=== PATIENT | female | born 1950 | race Caucasian/White ===

== ENCOUNTER 2019-08-08 10:50 | Inpatient (IN) ==
[2019-08-08] MEDS ORDERED: Isovue-370 500 ML BOTTLE IVP ONE ×2 (11:03→16:04)
--- NOTE | 2019-08-08 11:09 | Emergency Department Note ---
Disposition Clinical Impression: Hip pain, right Cerebrovascular accident Qualifiers: CVA mechanism: unspecified Qualified Code(s): I63.9 - Cerebral infarction, unspecified Fall Qualifiers: Encounter type: initial encounter Qualified Code(s): W19.XXXA - Unspecified fall, initial encounter Disposition: Admitted As Inpatient Condition: Fair Time of Disposition: 15:04 Neuro HPI - General Chief Complaint: ED Neuro Symptoms/Deficit Stated Complaint: stroke symptoms Time Seen by Provider: 08/08/19 11:01 Source: patient, family, EMS Mode of arrival: EMS Limitations: altered mental status, physical limitation, other Nursing Notes Reviewed: Yes Vital Signs Reviewed: Yes - History of Present Illness HPI Narrative: 68F with unknown PMhx that reports for right sided arm and leg weakness and right sided facial droop after reportedly being found on the floor by meals on wheels. Last seen well by family at bedside on or possibly Thursday, timeline is uncertain. No hx of stroke, no hx of intracranial surgery or head bleed. Has a hx of epilepsy for which she has a stimulator that she fires when she feels that she might be having a seizure. Pt is able to state her name and birthday with multiple prompts, but is difficult to understand. - Related Data Home Medications: Home Medications Medication Instructions Recorded Confirmed Atorvastatin Calcium [Lipitor] 20 mg PO DAILY 07/30/16 07/30/16 Cholecalciferol (D-3) [Vitamin D] 1,000 unit PO DAILY 07/30/16 07/30/16 Escitalopram [Lexapro] 20 mg PO DAILY 07/30/16 07/30/16 Ferrous Sulfate 325 mg PO BID 07/30/16 07/30/16 LevETIRAcetam [Keppra] 1,500 mg PO Q12H 07/30/16 07/30/16 Levothyroxine [Synthroid] 88 mcg PO DAILY 07/30/16 07/30/16 Oxybutynin [Ditropan] 2.5 mg PO QAM 07/30/16 07/30/16 Oxybutynin [Ditropan] 5 mg PO QPM 07/30/16 07/30/16 Pantoprazole Sodium [Protonix] 40 mg PO DAILY 07/30/16 07/30/16 diazePAM [Valium] 5 mg PO BID PRN 07/30/16 07/30/16 lamoTRIgine [Lamictal] 100 mg PO BID 07/30/16 07/30/16 metFORMIN [Glucophage] 1,000 mg PO BIDWM 07/30/16 07/30/16 Previous Rx's Medication Instructions Recorded Nitrofurantoin (BID) [Macrobid] 100 mg PO BID #14 capsule 12/09/17 Allergies/Adverse Reactions: Allergies Allergy/AdvReac Type Severity Reaction Status Date / Time aspirin Allergy See Verified 08/08/19 11:06 Comments codeine Allergy See Verified 08/08/19 11:06 Comments indomethacin [From Indocin] Allergy See Verified 08/08/19 11:06 Comments meclizine [From Antivert] Allergy See Verified 08/08/19 11:06 Comments Penicillins [PCN] Allergy See Verified 08/08/19 11:06 Comments phenytoin [From Dilantin] Allergy See Verified 08/08/19 11:06 Comments Sulfa (Sulfonamide Allergy See Verified 08/08/19 11:06 Antibiotics) Comments Limitations: ROS unobtainable due to patients medical condition Past Medical History - Past Medical History Source: unable to obtain Medical history: Reports: other Surgical history: Reports: other Psychiatric history: Reports: no psych history - Social History Smoking Status: Current every day smoker Smokeless Tobacco Status: No Alcohol use: Reports: none Drug use: Reports: none Physical Exam General: Knows name & birthday, place, but not time. Has head turned to the left, but can turn head to right. Requires multiple prompts to answer questions. Pt is disheveled and has soiled herself. Head: atraumatic, normocephalic. ENT: No conjunctival injection, no scleral icterus. PERRLA. EOMI. Oropharynx non- erythematous. mucous membranes tacky. Neuro: Has right sided facial droop, cannot keep right arm lifted, nor can she keep right leg lifted. She does not know what day it is. Can do cerebellar testing with left finger to nose, cannot do lower extremity cerebellar testing. Cannot identify objects from picture or read sentences. States that her sensation feels different when comparing left to right but cannot state how it is different. Speech is slurred and difficult to understand. Can move her eyes in all directions. Pulm: Lungs CTAB A/P. No wheezes, rales, ronchi. Cardio: RRR no m/r/g. Chest not tender to palpation. Abd: Soft, non-distended. Normoactive bowel sounds. Non-tender to palpation. No guarding. Non rigid. Extremities: Radial pulses 2+ stuart, dorsalis pedis/posterior tibialis 2+ stuart. No LE edema. No cyanosis, clubbing. Skin: warm, dry, intact. No rashes. Psych: Appropriate mood and affect. Answers questions appropriately. Cooperative with exam. - General Limitations: other General appearance: alert Course - Consultations Consultation #1: Spoke with Dr. anne from [facility] that states the patient is outside of the window for tPA. They declined to do a stroke evaluation using the robot and recommended admission for further neurologic workup here. Time: 11:20 Consultation #2: Spoke with Dr. Mcclendon from [facility] who states that there is nothing acute on non-con head CT. Time: 11:21 Consultation #3: Spoke with Ja Delong NP for Neurology who states they will see the patient as an inpatient. He had no further recommendations for care at this time. Time: 14:22 Vital Signs Temperature 98.2 F 08/08/19 10:50 Pulse Rate 74 08/08/19 10:50 Respiratory Rate 17 08/08/19 10:50 Blood Pressure 194/110 08/08/19 10:50 O2 Sat by Pulse Oximetry 99 08/08/19 10:50 Temperature 98.2 F 08/08/19 10:50 Pulse Rate 63 08/08/19 13:17 Respiratory Rate 18 08/08/19 13:17 Blood Pressure 194/102 08/08/19 13:17 O2 Sat by Pulse Oximetry 98 08/08/19 13:17 Oxygen Delivery Oxygen Delivery Room Air Neuro Symptoms/Deficit - MDM Narrative Medical decision making narrative: 68-year-old female that was reportedly found down on her floor at home after a fall at some point over the last several days. Patient was last seen by family on . Patient is unable to fully communicate what happened to her. EMS reported that her house was somewhat dirty, patient herself appears disheveled. There is some bruising over the right side of her hip. Patient has a right- sided facial droop, right arm and leg weakness with inability to move the extremities. A stroke alert was called, however when family arrived and reported that she was last known well on , the stroke alert was canceled. CT of her head was obtained which did not show any acute findings on a non-con Thursday, CT angiogram of the head did not reveal any clot that was visualized. X-ray of the hip was inconclusive as to fracture status, I spoke with the orthopedist on-call who recommended a follow-up CT while the patient is here to determine if there is a break in the hip without any dislocation or displacement. Patient was not complaining of any right hip pain while in the department. Patient was admitted to the hospitalist, Dr. Anderson, who accepted the patient to his service. Patient remained stable while in the department. - Medical Records Medical records reviewed: Yes I reviewed the patient's medical records. - Lab Data Lab results reviewed: Yes I reviewed the patient's lab results. Result diagrams: 08/08/19 10:55 08/08/19 10:55 Lab Results 08/08/19 08/08/19 08/08/19 Range/Units 10:55 10:55 10:55 WBC 16.4 H (4.3-11.1) K/mcL RBC 5.12 H (3.82-4.97) M/mcL Hgb 13.7 (11.5-15.4) g/dL Hct 42.5 (35.3-44.9) % MCV 83.0 (83.0-100.0) fL MCH 26.8 L (28.0-33.3) pg MCHC 32.2 (31.6-35.5) g/dL RDW 15.4 H (11.5-14.5) % Plt Count 365 (140-400) K/mcL MPV 8.6 L (9.4-12.4) fL PT 10.9 (9.4-12.1) Seconds INR 1.0 APTT 28.2 (26.0-36.0) Seconds Sodium 141 (136-145) mEq/L Potassium 3.4 L (3.5-5.1) mEq/L Chloride 104 (98-107) mEq/L Carbon Dioxide 19 L (23-29) mEq/L BUN 14 (8-23) mg/dL Creatinine 0.58 L (0.60-1.20) mg/dL Est GFR ( Amer) > 60 (> 60) Est GFR (Non-Af Amer) > 60 (> 60) BUN/Creatinine Ratio 24 (6-26) Glucose 123 H (70-105) mg/dL Calculated Osmolality 294 (280-300) Calcium 9.8 (8.6-10.3) mg/dL Creatine Kinase (30-223) Units/L Troponin I < 0.03 (< 0.04) ng/mL Urine Color (Yellow) Urine Clarity (Clear) Urine pH (5.0-8.0) pH Units Ur Specific [place] (1.010-1.025) Urine Protein (Neg-Trace) mg/dL Urine Glucose (UA) (Normal) mg/dL Urine Ketones (Negative) mg/dL Urine Blood (Negative) Urine Nitrite (Negative) Urine Bilirubin (Negative) Urine Urobilinogen (Normal) mg/dL Ur Leukocyte Esterase (Negative) Urine Microscopic RBC (0-3) per hpf Urine Microscopic WBC (0-3) per hpf Ur Squamous Epith Cells (None-Few) per lpf Urine Bacteria (None-Few) per hpf Hyaline Casts (None-Few) per lpf Ur Culture Indicated? (NO) 08/08/19 08/08/19 Range/Units 10:55 11:43 WBC (4.3-11.1) K/mcL RBC (3.82-4.97) M/mcL Hgb (11.5-15.4) g/dL Hct (35.3-44.9) % MCV (83.0-100.0) fL MCH (28.0-33.3) pg MCHC (31.6-35.5) g/dL RDW (11.5-14.5) % Plt Count (140-400) K/mcL MPV (9.4-12.4) fL PT (9.4-12.1) Seconds INR APTT (26.0-36.0) Seconds Sodium (136-145) mEq/L Potassium (3.5-5.1) mEq/L Chloride (98-107) mEq/L Carbon Dioxide (23-29) mEq/L BUN (8-23) mg/dL Creatinine (0.60-1.20) mg/dL Est GFR ( Amer) (> 60) Est GFR (Non-Af Amer) (> 60) BUN/Creatinine Ratio (6-26) Glucose (70-105) mg/dL Calculated Osmolality (280-300) Calcium (8.6-10.3) mg/dL Creatine Kinase 262 H (30-223) Units/L Troponin I (< 0.04) ng/mL Urine Color Yellow (Yellow) Urine Clarity Clear (Clear) Urine pH 5.5 (5.0-8.0) pH Units Ur Specific [place] > 1.030 H (1.010-1.025) Urine Protein 100 H (Neg-Trace) mg/dL Urine Glucose (UA) Normal (Normal) mg/dL Urine Ketones >=160 H (Negative) mg/dL Urine Blood Moderate H (Negative) Urine Nitrite Negative (Negative) Urine Bilirubin Small H (Negative) Urine Urobilinogen Normal (Normal) mg/dL Ur Leukocyte Esterase Negative (Negative) Urine Microscopic RBC 5-15 H (0-3) per hpf Urine Microscopic WBC 0-3 (0-3) per hpf Ur Squamous Epith Cells Many H (None-Few) per lpf Urine Bacteria None Seen (None-Few) per hpf Hyaline Casts Moderate H (None-Few) per lpf Ur Culture Indicated? NO (NO) - Radiology Data Radiology results reviewed: Yes I reviewed the patient's radiology results. Head CT 08/08/19 11:03 IMPRESSION: No acute intracranial abnormality. D/ / 08/08/2019 11:23:41 Ulices Mcclendon MD / [facility] Interpreting Provider: Ulices Mcclendon MD Head CTA 08/08/19 11:03 IMPRESSION: No high-grade stenosis or focal occlusion involving the intracranial vasculature. No evidence of intracranial aneurysm. D/ / 08/08/2019 11:33:16 Ulices Mcclendon MD / [facility] Interpreting Provider: Ulices Mcclendon MD Hip X-Ray 08/08/19 11:38 IMPRESSION: 1. Mild bilateral hip degenerative changes. No convincing acute radiographic finding to account for patient's right hip pain. Please note that radiography may not reveal non-displaced fractures and stress changes. If that is the clinical suspicion, MRI is the study of choice. D/ / Garrick Parson MD / Garrick Parson MD Interpreting Provider: Garrick Parson MD - EKG Data EKG attestation: Yes I reviewed and interpreted this EKG. EKG results narrative: Heart rate 71, rhythm sinus, axis normal. DC 128, QRS 85, QTC [address] segment depression, less than 1 mm in leads V4 through V6. No old EKG available for comparison. NIH Stroke Scale - Level of Consciousness LOC: Alert - LOC Questions LOC Questions: Answers both correctly - LOC Commands LOC Commands: Performs both correctly - Best Gaze Best Gaze: Normal - Visual Visual: No visual loss - Facial Palsy Facial Palsy: Partial, total, or near-total paralysis of lower face - Motor Arms Motor Arm-Left: No drift for 10 seconds Motor Arm-Right: No movement - Motor Legs Motor Leg-Left: No drift for 5 seconds Motor Leg-Right: No movement - Limb Ataxia Limb Ataxia: Absent of affected limb too weak to perform exam - Sensory Sensory: Mild to moderate loss, "not as sharp" - Best Language Best Language: Severe aphasia. Examiner CAN NOT identify pictures from response - Dysarthria Dysarthria: Mild, slurs some words - Extinction and Inattention Extinction and Inattention: Normal - NIHSS Total Score NIHSS Total Score: 14 TPA Checklist - LKW: 3-4.5 hrs Add. Warnings/Precautions Patient/family understanding: The patient/family members have been counseled and understood the risk, benefit, and alternatives of treatment.
[2019-08-08 11:12] LABS: Hematocrit 42.5 % (35.3-44.9); Hemoglobin 13.7 g/dL (11.5-15.4); Mean Corpuscular HGB Conc 32.2 g/dL (31.6-35.5); Mean Corpuscular Hemoglobin 26.8 pg (28.0-33.3); Mean Platelet Volume 8.6 fL (9.4-12.4); Platelet Count 365 K/mcL (140-400); Red Blood Count 5.12 M/mcL (3.82-4.97); Red Cell Distribution Width 15.4 % (11.5-14.5); White Blood Count 16.4 K/mcL (4.3-11.1)
--- NOTE | 2019-08-08 11:15 | Emergency Department Note ---
Disposition Clinical Impression: Hip pain, right Cerebrovascular accident Qualifiers: CVA mechanism: unspecified Qualified Code(s): I63.9 - Cerebral infarction, unspecified Fall Qualifiers: Encounter type: initial encounter Qualified Code(s): W19.XXXA - Unspecified fall, initial encounter Disposition: Admitted As Inpatient Condition: Fair Referrals: NONE,PCP [Primary Care Provider] - Forms: ED Satisfaction Letter Time of Disposition: 12:35 General Adult HPI - General Chief complaint: ED Neuro Symptoms/Deficit Stated complaint: stroke symptoms Time Seen by Provider: 08/08/19 11:01 Source: patient, family, EMS Mode of arrival: EMS Limitations: altered mental status, physical limitation, other Nursing Notes Reviewed: Yes Vital Signs Reviewed: Yes - History of Present Illness Pain Scale: 0 - Related Data Home Medications Medication Instructions Recorded Confirmed Atorvastatin Calcium [Lipitor] 20 mg PO DAILY 07/30/16 07/30/16 Cholecalciferol (D-3) [Vitamin D] 1,000 unit PO DAILY 07/30/16 07/30/16 Escitalopram [Lexapro] 20 mg PO DAILY 07/30/16 07/30/16 Ferrous Sulfate 325 mg PO BID 07/30/16 07/30/16 LevETIRAcetam [Keppra] 1,500 mg PO Q12H 07/30/16 07/30/16 Levothyroxine [Synthroid] 88 mcg PO DAILY 07/30/16 07/30/16 Oxybutynin [Ditropan] 2.5 mg PO QAM 07/30/16 07/30/16 Oxybutynin [Ditropan] 5 mg PO QPM 07/30/16 07/30/16 Pantoprazole Sodium [Protonix] 40 mg PO DAILY 07/30/16 07/30/16 diazePAM [Valium] 5 mg PO BID PRN 07/30/16 07/30/16 lamoTRIgine [Lamictal] 100 mg PO BID 07/30/16 07/30/16 metFORMIN [Glucophage] 1,000 mg PO BIDWM 07/30/16 07/30/16 Previous Rx's Medication Instructions Recorded Nitrofurantoin (BID) [Macrobid] 100 mg PO BID #14 capsule 12/09/17 Allergies Allergy/AdvReac Type Severity Reaction Status Date / Time aspirin Allergy See Verified 08/08/19 11:06 Comments codeine Allergy See Verified 08/08/19 11:06 Comments indomethacin [From Indocin] Allergy See Verified 08/08/19 11:06 Comments meclizine [From Antivert] Allergy See Verified 08/08/19 11:06 Comments Penicillins [PCN] Allergy See Verified 08/08/19 11:06 Comments phenytoin [From Dilantin] Allergy See Verified 08/08/19 11:06 Comments Sulfa (Sulfonamide Allergy See Verified 08/08/19 11:06 Antibiotics) Comments Past Medical History - Past Medical History Medical history: Reports: other Surgical history: Reports: other Psychiatric history: Reports: no psych history - Social History Smoking Status: Current every day smoker Smokeless Tobacco Status: No Alcohol use: Reports: none Drug use: Reports: none Physical Exam - General Limitations: altered mental status, physical limitation, other General appearance: alert Course Vital Signs Temperature 98.2 F 08/08/19 10:50 Pulse Rate 74 08/08/19 10:50 Respiratory Rate 17 08/08/19 10:50 Blood Pressure 194/110 08/08/19 10:50 O2 Sat by Pulse Oximetry 99 08/08/19 10:50 Temperature 98.2 F 08/08/19 10:50 Pulse Rate 63 08/08/19 13:17 Respiratory Rate 18 08/08/19 13:17 Blood Pressure 194/102 08/08/19 13:17 O2 Sat by Pulse Oximetry 98 08/08/19 13:17 Oxygen Delivery Oxygen Delivery Room Air Medical Decision Making - [facility] Narrative Medical decision making narrative: Head CT 08/08/19 11:03 IMPRESSION: No acute intracranial abnormality. D/ / 08/08/2019 11:23:41 Ulices Mcclendon MD / [facility] Interpreting Provider: Ulices Mcclendon MD 1120 hrs.: Spoke with the neurologist [facility] because of the unknown time this happened yesterday they feel she is out of the window for any intervention. Sore and continue her management here. They are in agreement with plan. I spoke with our social services assistant to start and assuming her home situation. Head CT 08/08/19 11:03 IMPRESSION: No acute intracranial abnormality. D/ / 08/08/2019 11:23:41 Ulices Mcclendon MD / [facility] Interpreting Provider: Ulices Mcclendon MD Head CTA 08/08/19 11:03 IMPRESSION: No high-grade stenosis or focal occlusion involving the intracranial vasculature. No evidence of intracranial aneurysm. D/ / 08/08/2019 11:33:16 Ulices Mcclendon MD / [facility] Interpreting Provider: Ulices Mcclendon MD Diagnostic 1206 hrs.: Patient has a bruise over her right hip. She does have tenderness there also. Because of her fall, ordered a hip xray and initial x- rays show no fracture on the right side. We will await radiology's official read. We will also speak to orthopedics with her admission. She will also need neurology consult. Head CT 08/08/19 11:03 IMPRESSION: No acute intracranial abnormality. D/ / 08/08/2019 11:23:41 Ulices Mcclendon MD / [facility] Interpreting Provider: Ulices Mcclendon MD Head CTA 08/08/19 11:03 IMPRESSION: No high-grade stenosis or focal occlusion involving the intracranial vasculature. No evidence of intracranial aneurysm. D/ / 08/08/2019 11:33:16 Ulices Mcclendon MD / [facility] Interpreting Provider: Ulices Mcclendon MD Hip X-Ray 08/08/19 11:38 IMPRESSION: 1. Mild bilateral hip degenerative changes. No convincing acute radiographic finding to account for patient's right hip pain. Please note that radiography may not reveal non-displaced fractures and stress changes. If that is the clinical suspicion, MRI is the study of choice. D/ / Garrick Parson MD / Garrick Parson MD Interpreting Provider: Garrick Parson MD 1430 hrs.: Neurology is here to see the patient. Waiting on hospitalist call back. 1235 hrs.: X-ray notes no convincing evidence of fracture but she does have a lot of degenerative changes in outside and she is tender there since she may require further imaging while she is inpatient. We spoke with orthopedics is happy to consult. I will speak with hospitalist. - Lab Data Result diagrams: 08/08/19 10:55 08/08/19 10:55 Lab Results 08/08/19 08/08/19 08/08/19 Range/Units 10:55 10:55 10:55 WBC 16.4 H (4.3-11.1) K/mcL RBC 5.12 H (3.82-4.97) M/mcL Hgb 13.7 (11.5-15.4) g/dL Hct 42.5 (35.3-44.9) % MCV 83.0 (83.0-100.0) fL MCH 26.8 L (28.0-33.3) pg MCHC 32.2 (31.6-35.5) g/dL RDW 15.4 H (11.5-14.5) % Plt Count 365 (140-400) K/mcL MPV 8.6 L (9.4-12.4) fL PT 10.9 (9.4-12.1) Seconds INR 1.0 APTT 28.2 (26.0-36.0) Seconds Sodium 141 (136-145) mEq/L Potassium 3.4 L (3.5-5.1) mEq/L Chloride 104 (98-107) mEq/L Carbon Dioxide 19 L (23-29) mEq/L BUN 14 (8-23) mg/dL Creatinine 0.58 L (0.60-1.20) mg/dL Est GFR ( Amer) > 60 (> 60) Est GFR (Non-Af Amer) > 60 (> 60) BUN/Creatinine Ratio 24 (6-26) Glucose 123 H (70-105) mg/dL Calculated Osmolality 294 (280-300) Calcium 9.8 (8.6-10.3) mg/dL Creatine Kinase (30-223) Units/L Troponin I < 0.03 (< 0.04) ng/mL Urine Color (Yellow) Urine Clarity (Clear) Urine pH (5.0-8.0) pH Units Ur Specific [place] (1.010-1.025) Urine Protein (Neg-Trace) mg/dL Urine Glucose (UA) (Normal) mg/dL Urine Ketones (Negative) mg/dL Urine Blood (Negative) Urine Nitrite (Negative) Urine Bilirubin (Negative) Urine Urobilinogen (Normal) mg/dL Ur Leukocyte Esterase (Negative) Urine Microscopic RBC (0-3) per hpf Urine Microscopic WBC (0-3) per hpf Ur Squamous Epith Cells (None-Few) per lpf Urine Bacteria (None-Few) per hpf Hyaline Casts (None-Few) per lpf Ur Culture Indicated? (NO) 08/08/19 08/08/19 Range/Units 10:55 11:43 WBC (4.3-11.1) K/mcL RBC (3.82-4.97) M/mcL Hgb (11.5-15.4) g/dL Hct (35.3-44.9) % MCV (83.0-100.0) fL MCH (28.0-33.3) pg MCHC (31.6-35.5) g/dL RDW (11.5-14.5) % Plt Count (140-400) K/mcL MPV (9.4-12.4) fL PT (9.4-12.1) Seconds INR APTT (26.0-36.0) Seconds Sodium (136-145) mEq/L Potassium (3.5-5.1) mEq/L Chloride (98-107) mEq/L Carbon Dioxide (23-29) mEq/L BUN (8-23) mg/dL Creatinine (0.60-1.20) mg/dL Est GFR ( Amer) (> 60) Est GFR (Non-Af Amer) (> 60) BUN/Creatinine Ratio (6-26) Glucose (70-105) mg/dL Calculated Osmolality (280-300) Calcium (8.6-10.3) mg/dL Creatine Kinase 262 H (30-223) Units/L Troponin I (< 0.04) ng/mL Urine Color Yellow (Yellow) Urine Clarity Clear (Clear) Urine pH 5.5 (5.0-8.0) pH Units Ur Specific [place] > 1.030 H (1.010-1.025) Urine Protein 100 H (Neg-Trace) mg/dL Urine Glucose (UA) Normal (Normal) mg/dL Urine Ketones >=160 H (Negative) mg/dL Urine Blood Moderate H (Negative) Urine Nitrite Negative (Negative) Urine Bilirubin Small H (Negative) Urine Urobilinogen Normal (Normal) mg/dL Ur Leukocyte Esterase Negative (Negative) Urine Microscopic RBC 5-15 H (0-3) per hpf Urine Microscopic WBC 0-3 (0-3) per hpf Ur Squamous Epith Cells Many H (None-Few) per lpf Urine Bacteria None Seen (None-Few) per hpf Hyaline Casts Moderate H (None-Few) per lpf Ur Culture Indicated? NO (NO) Critical Care Time Critical Care Time: Yes Total Critical Care Time: 50 Attestation: Excluding any separately billable procedures per Attestation Statement - Attestation Attestation: This documentation is done with the assistance of Dragon dictation. Despite efforts made to ensure accuracy, there may be inaccuracies in business planning analyst or spelling and typographical errors. I examined this patient and my medical decision-making was reviewed with the Resident Physician. I agree with the documented findings, disposition and treatment plan as described except to the extent set forth below. Patient was seen and evaluated by Dr. Rodriguez, I agree with their evaluation and management plan, I supervised care the patient's stay. Patient presents by EMS apparently she fell yesterday at home and is unable to get up. Someone was delivering something today and her insides of the called [place]. She said that she fell yesterday and she thinks she had a stroke. She has right-sided neglect. She has weakness on the right side. She is able to talk to us. She has soiled herself. And is fairly dirty. Squad said there is a lot of concerns at home is look like she lives alone place was not well taking care of just it was her and her dog. We will get adoption social worker involved tissue are seen need admission. She is outside the window of TPA. I reviewed the residents documentation and agree with the residents assessment and plan of care. I have personally had face to face time with the patient. (Brief History, Brief Exam, and MDM) I personally supervised and was present for the elizalde/critical portions of the following procedures completed by the resident: EKG was interpreted by the resident under my supervision, I agree with their interpretation.
[2019-08-08 11:19] LABS: Prothrombin Time 10.9 Seconds (9.4-12.1)
[2019-08-08 11:21] LABS: Activated Partial Thrombo Time 28.2 Seconds (26.0-36.0)
[2019-08-08 11:38] LABS: BUN/Creatinine Ratio 24 (6-26); Blood Urea Nitrogen 14 mg/dL (8-23); Calcium 9.8 mg/dL (8.6-10.3); Carbon Dioxide 19 mEq/L (23-29); Chloride 104 mEq/L (98-107); Glucose 123 mg/dL (70-105); Osmolality,Calculated 294 (280-300); Potassium 3.4 mEq/L (3.5-5.1); Sodium 141 mEq/L (136-145); Troponin I < 0.03 ng/mL (< 0.04); eGFR For African Americans > 60 (> 60); eGFR For Non-African Americans > 60 (> 60)
[2019-08-08] MEDS ORDERED: 0.9 % Sodium Chloride 1,000 ML IVC ONE (11:42)
[2019-08-08 12:13] LABS: Bilirubin,Urine Small (Negative); Blood,Urine Moderate (Negative); Clarity,Urine Clear (Clear); Color,Urine Yellow (Yellow); Glucose,Urine (UA) Normal (Normal); Ketones,Urine >=160 mg/dL (Negative); Leukocyte Esterase,Urine Negative (Negative); Nitrite,Urine Negative (Negative); PH,Urine 5.5 pH Units (5.0-8.0); Protein,Urine 100 mg/dL (Neg-Trace); Specific Gravity,Urine > 1.030 (1.010-1.025); Urobilinogen,Urine Normal (Normal)
[2019-08-08 12:16] LABS: Bacteria,Urine None Seen per hpf (None-Few); Hyaline Casts,Urine Moderate per lpf (None-Few); Squamous Epithelial Cell,Urine Many per lpf (None-Few); WBC,Urine 0-3 per hpf (0-3)
[2019-08-08] MEDS ORDERED: Ondansetron 4 MG/2 ML VIAL IVP PRN (15:56)
[2019-08-08] MEDS ORDERED: *HR* Dextrose 50 % in Water (Syg) 50 ML SYRINGE IVP PRN (16:05)
[2019-08-08] MEDS ORDERED: D5% in Water 1,000 ML IVC PRN (16:05)
[2019-08-08] MEDS ORDERED: Dextrose Gel 15 GM/37.5 ML TUBE PO PRN ×2 (16:05)
--- NOTE | 2019-08-08 16:09 | Internal Med History&Physical ---
Date of Encounter: 08/08/19 Time of Encounter: 15:05 Internal Medicine - H&P: HPI Chief complaint: Weakness Admitted From: Home Plans for Post Hospital Care: Home History of present illness: Ms. Garcia is a 68 year old female with history of seizure disorder with seizure stimulator, type II DM, GERD who came into the hospital after she was found on the floor by meals on wheels today. Patient lives by herself and as per the family, she was found on the floor. Last time they talked to her was 2 days ago. Patient has a slurred speech, right facial droop and right-sided weakness. She also has difficulty finding words. She denied any previous stroke in the past. She also has right hip hematoma and slight tenderness. She denied fever, chills or night sweats. She has no chest pain, shortness of breath, cough, nausea or vomiting. In the ED, patient was hypertensive with blood pressure as high as 221/87, af ebrile. Laboratory workup was significant for leukocytosis 16.4. CPK, 262. UA + for ketons and blood. CT head was negative for hemorrhage. CTA head no high- grade stenosis or focal occlusion. Hip x-ray showed mild bilateral hip degenerative changes with no radiographic evidence of right hip pain. CT of that right hip revealed subcutaneous stranding that could represent a hematoma. No evidence of fracture. EKG sinus rhythm with no sign of arrhythmia or ischemia. Past Med Surg Social Fam HX - Past Medical History Source: patient Medical history: diabetes, GERD, seizures, other Additional medical history: unknown Psychiatric history: no psych history - Past Surgical History Surgical History: no surgical history, other Additional surgical history: unknown - Social History Smoking Status: Current every day smoker Smokeless Tobacco Status: No Alcohol use: none Drug use: none Activity Level: Independent ambulation Recent Out of Country Travel Within the Last 8 Weeks: No Exposure or Possible Exposure to Illness During Travel: No - Additional Family History Additional family history: Sister with type II DM Internal Medicine - H&P: Meds Atorvastatin Calcium [Lipitor] 20 mg PO DAILY 07/30/16 [History] Cholecalciferol (D-3) [Vitamin D] 1,000 unit PO DAILY 07/30/16 [History] Escitalopram [Lexapro] 20 mg PO DAILY 07/30/16 [History] Ferrous Sulfate 325 mg PO BID 07/30/16 [History] LevETIRAcetam [Keppra] 1,500 mg PO Q12H 07/30/16 [History] Levothyroxine [Synthroid] 88 mcg PO DAILY 07/30/16 [History] Oxybutynin [Ditropan] 2.5 mg PO QAM 07/30/16 [History] Oxybutynin [Ditropan] 5 mg PO QPM 07/30/16 [History] Pantoprazole Sodium [Protonix] 40 mg PO DAILY 07/30/16 [History] diazePAM [Valium] 5 mg PO BID PRN 07/30/16 [History] lamoTRIgine [Lamictal] 100 mg PO BID 07/30/16 [History] metFORMIN [Glucophage] 1,000 mg PO BIDWM 07/30/16 [History] Nitrofurantoin (BID) [Macrobid] 100 mg PO BID #14 capsule 12/09/17 [Rx] Allergy/AdvReac Type Severity Reaction Status Date / Time aspirin Allergy See Verified 08/08/19 11:06 Comments codeine Allergy See Verified 08/08/19 11:06 Comments indomethacin [From Indocin] Allergy See Verified 08/08/19 11:06 Comments meclizine [From Antivert] Allergy See Verified 08/08/19 11:06 Comments Penicillins [PCN] Allergy See Verified 08/08/19 11:06 Comments phenytoin [From Dilantin] Allergy See Verified 08/08/19 11:06 Comments Sulfa (Sulfonamide Allergy See Verified 08/08/19 11:06 Antibiotics) Comments All Systems PM: A 10-system review of systems was performed and is negative for pertinent findings except as documented above in the HPI. - Constitutional Vitals: Temp Pulse Resp BP Pulse Ox 98.2 F 76 18 194/70 98 08/08/19 10:50 08/08/19 15:00 08/08/19 15:00 08/08/19 15:00 08/08/19 15:00 Exam: General: Patient is alert, oriented 3. No distress Head: Atraumatic, Eye: EOMI, PERRLA, no scleral icterus noted. ENT: Mucous membranes moist. Neck: Normal inspection, Respiratory: No respiratory distress, rhonchi, or wheezes noted. Cardiovascular: Regular rate and regular rhythm, No murmurs, rubs, or gallops. GI: Soft, nondistended, normal bowel sounds. Extremities: Right hip red discoloration consistent with hematoma. No external or internal rotation of the right lower extremity. Pulses are intact in the right and the left dorsalis pedis Neurological: Slurred speech, right facial droop. Right proptosis, Right sided Upper and Lower extermity weakness, decrease sensation. Babinski sign is up going and the right lower extremity. Psychiatric: normal affect, normal mood. Skin: Dry, intact, warm. Normal color. No rashes. Internal Med - H&P Results - Labs CBC & Chem 7: 08/08/19 10:55 08/08/19 10:55 Labs: Short CBC 08/08/19 Range/Units 10:55 WBC 16.4 H (4.3-11.1) K/mcL Hgb 13.7 (11.5-15.4) g/dL Hct 42.5 (35.3-44.9) % Plt Count 365 (140-400) K/mcL BMP 08/08/19 10:55 Sodium 141 Potassium 3.4 L Chloride 104 Carbon Dioxide 19 L BUN 14 Creatinine 0.58 L Glucose 123 H Calcium 9.8 Cardiac Enzymes 08/08/19 Range/Units 10:55 Troponin I < 0.03 (< 0.04) ng/mL Urine 08/08/19 Range/Units 11:43 Urine Color Yellow (Yellow) Urine Clarity Clear (Clear) Urine pH 5.5 (5.0-8.0) pH Units Ur Specific [place] > 1.030 H (1.010-1.025) Urine Protein 100 H (Neg-Trace) mg/dL Urine Glucose (UA) Normal (Normal) mg/dL - EKG Data -: EKG Interpreted by Myself EKG shows normal: sinus rhythm - EKG Data Prior EKG available for review: yes When compared to previous EKG: there is no significant change - Impressions ITS Impressions Head CT 08/08/19 11:03 IMPRESSION: No acute intracranial abnormality. D/ / 08/08/2019 11:23:41 Ulices Mcclendon MD / earnold Interpreting Provider: Ulices Mcclendon MD Head CTA 08/08/19 11:03 IMPRESSION: No high-grade stenosis or focal occlusion involving the intracranial vasculature. No evidence of intracranial aneurysm. D/ / 08/08/2019 11:33:16 Ulices Mcclendon MD / rylan Interpreting Provider: Ulices Mcclendon MD Hip X-Ray 08/08/19 11:38 IMPRESSION: 1. Mild bilateral hip degenerative changes. No convincing acute radiographic finding to account for patient's right hip pain. Please note that radiography may not reveal non-displaced fractures and stress changes. If that is the clinical suspicion, MRI is the study of choice. D/ / Garrick Parson MD / Garrick Parson MD Interpreting Provider: Garrick Parson MD Hip CT 08/08/19 13:57 IMPRESSION: 1. No acute osseous finding to account for patient's right hip pain. Please note that CT may not reveal non-displaced fractures and stress changes. If that is the clinical suspicion, MRI is the study of choice. 2. Subcutaneous stranding over the right hip and the right gluteus. Given the clinical context, this may represent a hematoma. D/ / 08/08/2019 14:47:10 Garrick Parson MD / Meagan Childress Interpreting Provider: Garrick Parson MD - Diagnostic Studies CT scan - head Status: image reviewed by me Additional comments: No sign of bleeding - Assessment and Plan (1) Cerebrovascular accident Current Visit: Yes Status: Acute Qualifiers: CVA mechanism: unspecified Qualified Code(s): I63.9 - Cerebral infarction, unspecified (2) Seizure disorder Current Visit: No Status: Chronic (3) Hip hematoma, right Current Visit: Yes Status: Acute Qualifiers: Encounter type: initial encounter Qualified Code(s): S70.01XA - Contusion of right hip, initial encounter (4) T2DM (type 2 diabetes mellitus) Current Visit: Yes Status: Chronic Qualifiers: Diabetes mellitus snf insulin use: without 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 Her symptoms were managed as following: CVA: - No radiographic evidence however of physical exam is consistent with CVA. Neurology service was consulted, appreciate recommendation. - CT head without finding of acute bleed, CTA head without a finding of high grade stenosis. CTA neck ordered. Unable to do MRI brain due to seizure stimulator. - Hx of Aspirin allergy, was given lipitor and plavix in the ER. - Ordered Echo with saline, monitor bed, NIH scale, Aspiration precautions, Speech eval. Will defer PT/OT once cleared by ortho given her CT findings. Check A1c and Lipid. - We will allow permissive hypertension ~ 220/120 until tomorrow morning. - Consulted to quit smoking. Right hip hematoma: - No sign of fracture on CT hip and x-ray of the hip. Orthopedic surgery is consulted. Defer PT/OT until seen by ortho surgery. Seizure disorder: - Continue home medication Type II DM: Hold oral hypoglycemic and started patient on sliding scale every 6 hours until she eats. Hypothyroidism: Continue home medication. DVT prophylaxis: SCD - Time Spent With Patient Total time spent is greater than 50% in coordination of care (as documented) at patient's floor/unit and/or counseling patient:
--- NOTE | 2019-08-08 16:20 | Neurology - Consult Note ---
<Ranjith Cates M - Last Filed: 08/08/19 16:40> Date of Encounter: 08/08/19 Time of Encounter: 14:30 Assessment and Plan (1) Cerebrovascular accident Current Visit: Yes Status: Acute Focal neurological deficits present with right sided hemineglect consistent with cortical stroke. Given patients listed allergy to Aspirin, plavix was started. Initial CT was negative for CVA. Patient has vagal nerve stimulator for past history of seizures which precludes MRI, will perform CTA of neck. CTA of brain reviewed without evidence of CVA at this time. Echo ordered to evaluate for source of suspected ischemic CVA. Continue neuro checks and medical stabilization. Will follow up tomorrow with CT and with results of CTA neck. Qualifiers: CVA mechanism: unspecified Qualified Code(s): I63.9 - Cerebral infarction, unspecified History of Present Illness Chief complaint: "Fall" HPI: Ms. Garcia is a 68 year old female with past medical history significant for hypertension, hyperlipidemia, diabetes mellitus and tobacco use disorder who presents to ED after being found in the floor of her home with right sided weakness, right sided facial droop and dysarthria. Her daughter reports she was at her mothers Thursday and did not notice a right sided facial droop, weakness or difficulty speaking at that time. Her daughter further reports she attempted to contact Ms. Garcia yesterday but were unable to do so. Meals on wheels attempted to deliver to patients home this AM but was unable to get an answer at the door and called 911 as a result. Patient reports falling in her home and told ER staff "I think I had a stroke." She reports thinking she hit her head when she fell. She is dysarthric too interview but can be minimally understood. She denies headache, nausea, double/blurry vision, numbness or tingling. She admits to weakness and difficulty speaking. Past Med Surg Social Fam HX - Past Medical History Medical history: diabetes, hyperlipidemia, hypertension, other Additional medical history: unknown Psychiatric history: no psych history - Past Surgical History Surgical History: other Additional surgical history: unknown - Social History Smoking Status: Current every day smoker Smokeless Tobacco Status: No Alcohol use: none Drug use: none Medications and Allergies Atorvastatin Calcium [Lipitor] 20 mg PO DAILY 07/30/16 [History] Cholecalciferol (D-3) [Vitamin D] 1,000 unit PO DAILY 07/30/16 [History] Escitalopram [Lexapro] 20 mg PO DAILY 07/30/16 [History] Ferrous Sulfate 325 mg PO BID 07/30/16 [History] LevETIRAcetam [Keppra] 1,500 mg PO Q12H 07/30/16 [History] Levothyroxine [Synthroid] 88 mcg PO DAILY 07/30/16 [History] Oxybutynin [Ditropan] 2.5 mg PO QAM 07/30/16 [History] Oxybutynin [Ditropan] 5 mg PO QPM 07/30/16 [History] Pantoprazole Sodium [Protonix] 40 mg PO DAILY 07/30/16 [History] diazePAM [Valium] 5 mg PO BID PRN 07/30/16 [History] lamoTRIgine [Lamictal] 100 mg PO BID 07/30/16 [History] metFORMIN [Glucophage] 500 mg PO BIDWM 07/30/16 [History] Nitrofurantoin (BID) [Macrobid] 100 mg PO BID #14 capsule 12/09/17 [Rx] Allergy/AdvReac Type Severity Reaction Status Date / Time aspirin Allergy See Verified 08/08/19 11:06 Comments codeine Allergy See Verified 08/08/19 11:06 Comments indomethacin [From Indocin] Allergy See Verified 08/08/19 11:06 Comments meclizine [From Antivert] Allergy See Verified 08/08/19 11:06 Comments Penicillins [PCN] Allergy See Verified 08/08/19 11:06 Comments phenytoin [From Dilantin] Allergy See Verified 08/08/19 11:06 Comments Sulfa (Sulfonamide Allergy See Verified 08/08/19 11:06 Antibiotics) Comments All Systems: The remainder of the systems were reviewed and are negative - Constitutional Constitutional ROS IM: no anorexia, no chills, no excessive sweating, no fever(s), no headache(s) - Nose, Mouth, Throat Nose, mouth and throat: no abnormal hearing, no disequilibrium, no dizziness, no dysphagia - Cardiovascular Cardiovascular ROS IM: no chest pain with activity, no dyspnea, no edema, no syncope - Respiratory Respiratory IM: no cough, no dyspnea, no wheezing - Gastrointestinal Gastrointestinal: no nausea, no vomiting - Musculoskeletal Musculoskeletal ROS IM: muscle weakness (right sided muscle weakness), no back pain, no numbness, no tingling - Integumentary Integumentary IM: no swelling, no unusual bruising - Neurological Neurological ROS: abnormal speech (dysarthric speech), sensory deficit (right sided hemiglect), no abnormal movements, no disequilibrium, no headache(s), no tingling Physical Examination - Vital Signs Vital Signs: Initial Vital Signs Temp Pulse Resp BP Pulse Ox 98.2 F 74 17 194/110 99 08/08/19 10:50 08/08/19 10:50 08/08/19 10:50 08/08/19 10:50 08/08/19 10:50 - Exam Exam: GENERAL: Comfortable in no acute distress HEENT: Normal LUNGS: CTA HEART: RRR, S1 S2 Audible, no murmur EXTREMITIES: No Pedal edema. DETAILED NEUROLOGICAL EXAMINATION: MENTAL STATUS: Oriented to person, place, date and situation. Memory: knows the President, Aware of recent events Recent Memory Intact, Attention span is normal Cranial Nerve Examination: CN - II: Visual Acuity, Field of Vision Normal, Pupils- size shape reaction to light and accommodation: All normal. CN III, IV, : External ocular movements were intact, Pupils were reactive, Nodrooping of the eyelids CN V: Sensation over the face to light touch and pinprick all normal. Corneal r eflexes not tested, jaw jerk normal. CN VII: Right sided facial droop, flattening of nasolabial fold on right, no difficulty in closing the eyes, no loss of forehead wrinkles, no difficulty in eye-closure, frowning raising eyebrows. CNVIII: No significant hearing loss CN IX, X: Uvula centralized not deviated, Gag reflex: Not tested CN X1: Sternocleidomastoid, trapezius, flaccid on right, mild weakness on left CN X11: Severe Dysarthria, no wasting or fibrilation of tongue muscles, tongue deviation to the left, tongue muscle strength normal. Motor examination: No hypertrophy Upper limbs Proximal- Unable to lift right arm Distal- Flaccid paralysis of right upper extremity On formal testing 5/5 on left, 0/5 on right Lower limbs On formal testing 5/5 on left, 0/5 on right with flaccid paralysis Coordination: Unable to perform finger to nose on right. Due to hemineglect all coordination tests were performed with only her left arm participating including finger to nose, and rapid alternating movements. Sensory system: Superficial sensations- No sensation to touch of right side upper and lower extremity, normal sensation on right. Pain- Pinprick, Temperature all normal on left, absent on right Deep sensation normal, Joint position sense normal. Cortical sensation, Tactile discrimination, localization and extinction all absent on right. Deep tendon reflexes. Symmetrical bilateral, No evidence of Babinski. No sign of meningeal irritation Gait Examination: Deferred Results - Laboratory Findings CBC and BMP: 08/08/19 10:55 08/08/19 10:55 Abnormal lab findings: Abnormal lab results WBC 16.4 K/mcL (4.3-11.1) H 08/08/19 10:55 RBC 5.12 M/mcL (3.82-4.97) H 08/08/19 10:55 MCH 26.8 pg (28.0-33.3) L 08/08/19 10:55 RDW 15.4 % (11.5-14.5) H 08/08/19 10:55 MPV 8.6 fL (9.4-12.4) L 08/08/19 10:55 Potassium 3.4 mEq/L (3.5-5.1) L 08/08/19 10:55 Carbon Dioxide 19 mEq/L (23-29) L 08/08/19 10:55 Creatinine 0.58 mg/dL (0.60-1.20) L 08/08/19 10:55 Glucose 123 mg/dL (70-105) H 08/08/19 10:55 Creatine Kinase 262 Units/L (30-223) H 08/08/19 10:55 Ur Specific [place] > 1.030 (1.010-1.025) H 08/08/19 11:43 Urine Protein 100 mg/dL (Neg-Trace) H 08/08/19 11:43 Urine Ketones >=160 mg/dL (Negative) H 08/08/19 11:43 Urine Blood Moderate (Negative) H 08/08/19 11:43 Urine Bilirubin Small (Negative) H 08/08/19 11:43 Urine Microscopic RBC 5-15 per hpf (0-3) H 08/08/19 11:43 Ur Squamous Epith Cells Many per lpf (None-Few) H 08/08/19 11:43 Hyaline Casts Moderate per lpf (None-Few) H 08/08/19 11:43 Consult Discharge Plan - Plan Referrals: NONE,PCP [Primary Care Provider] - <Len Gore Joelle - Last Filed: 08/08/19 18:15> Date of Encounter: 08/08/19 Assessment and Plan (1) Cerebrovascular accident Current Visit: Yes Status: Acute I have personally performed a [id number] assessment of the patient and have reviewed the PA/DATA STEWARD note. My impressions are as follows: I agree with the assessment and plan of the neurology resident as stated above. Highly suspicious of a left cortical infarct. Patient has had extremely high blood pressure readings since admission. Unfortunately patient has a vagal nerve s timulator and is not a candidate for MRI. We will however obtain CTA scan of the neck. CTA of the head was unremarkable. We will also check echocardiogram to rule out cardioembolic source of event. We will allow for permissive hypertension for the time being, I would like to see the systolic blood pressure between 160-180 for the next day or 2. Patient also has a history of diabetes, and is a cigarette smoker. I spoke with her at length regarding the urgency of smoking cessation along with aggressive management of her stroke risk factors. We should maintain her on Plavix 75 mg daily for now as she is reportedly allergic to aspirin. Further recommendations to follow. Qualifiers: CVA mechanism: unspecified Qualified Code(s): I63.9 - Cerebral infarction, unspecified History of Present Illness HPI: The chart was reviewed, patient was seen and examined along with Dr. Cates. We spoke to family members at length. Patient's blood pressure has been running in the high [id number] since admission. I agree with his assessment of the history of present illness as documented above. All Systems: The remainder of the systems were reviewed and are negative Review of Systems: The balance of the systems review is negative. Physical Examination - Vital Signs Vital Signs: Initial Vital Signs Temp Pulse Resp BP Pulse Ox 98.2 F 74 17 194/110 99 08/08/19 10:50 08/08/19 10:50 08/08/19 10:50 08/08/19 10:50 08/08/19 10:50 - Exam Exam: I have personally performed a [id number] assessment of the patient and have reviewed the PA/DATA STEWARD note. My impressions are as follows: Deep tendon reflexes were diminished throughout. Otherwise I agree with the documentation of the neurologic examination as above. Results - Laboratory Findings CBC and BMP: 08/08/19 10:55 08/08/19 10:55 Abnormal lab findings: Abnormal lab results WBC 16.4 K/mcL (4.3-11.1) H 08/08/19 10:55 RBC 5.12 M/mcL (3.82-4.97) H 08/08/19 10:55 MCH 26.8 pg (28.0-33.3) L 08/08/19 10:55 RDW 15.4 % (11.5-14.5) H 08/08/19 10:55 MPV 8.6 fL (9.4-12.4) L 08/08/19 10:55 Potassium 3.4 mEq/L (3.5-5.1) L 08/08/19 10:55 Carbon Dioxide 19 mEq/L (23-29) L 08/08/19 10:55 Creatinine 0.58 mg/dL (0.60-1.20) L 08/08/19 10:55 Glucose 123 mg/dL (70-105) H 08/08/19 10:55 Creatine Kinase 262 Units/L (30-223) H 08/08/19 10:55 Ur Specific [place] > 1.030 (1.010-1.025) H 08/08/19 11:43 Urine Protein 100 mg/dL (Neg-Trace) H 08/08/19 11:43 Urine Ketones >=160 mg/dL (Negative) H 08/08/19 11:43 Urine Blood Moderate (Negative) H 08/08/19 11:43 Urine Bilirubin Small (Negative) H 08/08/19 11:43 Urine Microscopic RBC 5-15 per hpf (0-3) H 08/08/19 11:43 Ur Squamous Epith Cells Many per lpf (None-Few) H 08/08/19 11:43 Hyaline Casts Moderate per lpf (None-Few) H 08/08/19 11:43
[2019-08-08] MEDS ORDERED: Insulin LISPRO 300 UNITS/3 ML VIAL SQ SCH (18:00)
[2019-08-08] MEDS ORDERED: lamoTRIgine 100 MG TABLET PO SCH (21:00)
--- NOTE | 2019-08-08 21:30 | Orthopedic Consult Note ---
Date of Encounter: 08/08/19 Time of Encounter: 21:30 Assessment and Plan (1) Hip pain, right Current Visit: Yes Status: Acute At this point imaging has been negative for fractures which included x-ray and CT scan. She is unable to obtain an MRI due to having a previous stimulator for her epilepsy. She does not appear to be clinically painful regarding the right groin region with motion passively of the right hip or axial loading of the right thigh. We will reassess in the morning. If clinical concern arises we will consider bone scan of the right hip to further evaluate for any increased uptake that may be related to fracture. Until then we will keep her nonweightbearing on the right lower extremity. I will reevaluate her tomorrow and attempt to reach out to family as well to further discuss patient's baseline status and function. I have reviewed each of the pertinent components of this chart and any other pertinent medical component(s) including but not limited to pertinent application of the chief complaint, history of present illness, current medication, medical history, allergies, family history, medical history, surgical history, social history, review of systems, vital signs, and any other portion of the pertinent patient medical record directly or indirectly involved with this patient care that is pertinent based on my medical decision process. PAMELA Benson History of Present Illness HPI: Ms. Garcia is a 68 year old female who is currently admitted to the hospitalist due to an acute stroke with right-sided hemiparesis. There are no family members and she is not able to communicate effectively or complaints though she is able to get simple yes and no answers. Most of the history is clean from the chart. She apparently lives alone and gets Meals on Wheels. She is found down on the ground and was brought to the emergency department. She did have ecchymosis over the right hip and an x-ray was felt to be concerning for fracture right emergency department staff. She is unable to get an MRI due to having stimulator for her epilepsy, and therefore CT scan was obtained which did not show any definite fractures. I was asked to evaluate the right hip. Again the patient is able to verbalize any definite complaints. Past Med Surg Social Fam HX - Past Medical History Medical history: diabetes, GERD, seizures, other Additional medical history: unknown Psychiatric history: no psych history - Past Surgical History Surgical History: no surgical history, other Additional surgical history: unknown - Social History Smoking Status: Current every day smoker Smokeless Tobacco Status: No Alcohol use: none Drug use: none Medications and Allergies Atorvastatin Calcium [Lipitor] 20 mg PO DAILY 07/30/16 [History] Cholecalciferol (D-3) [Vitamin D] 1,000 unit PO DAILY 07/30/16 [History] Escitalopram [Lexapro] 20 mg PO DAILY 07/30/16 [History] Ferrous Sulfate 325 mg PO BID 07/30/16 [History] LevETIRAcetam [Keppra] 1,500 mg PO Q12H 07/30/16 [History] Levothyroxine [Synthroid] 88 mcg PO DAILY 07/30/16 [History] Oxybutynin [Ditropan] 2.5 mg PO QAM 07/30/16 [History] Oxybutynin [Ditropan] 5 mg PO QPM 07/30/16 [History] Pantoprazole Sodium [Protonix] 40 mg PO DAILY 07/30/16 [History] lamoTRIgine [Lamictal] 100 mg PO BID 07/30/16 [History] metFORMIN [Glucophage] 500 mg PO BIDWM 07/30/16 [History] Allergy/AdvReac Type Severity Reaction Status Date / Time aspirin Allergy See Verified 08/08/19 11:06 Comments codeine Allergy See Verified 08/08/19 11:06 Comments indomethacin [From Indocin] Allergy See Verified 08/08/19 11:06 Comments meclizine [From Antivert] Allergy See Verified 08/08/19 11:06 Comments Penicillins [PCN] Allergy See Verified 08/08/19 11:06 Comments phenytoin [From Dilantin] Allergy See Verified 08/08/19 11:06 Comments Sulfa (Sulfonamide Allergy See Verified 08/08/19 11:06 Antibiotics) Comments All Systems Reviewed: Unable to obtain meaningful review of systems due to the patient's mental status. Physical Exam - Constitutional Vitals: Temp Pulse Resp BP Pulse Ox 97.7 F 71 17 193/87 95 08/08/19 17:08 08/08/19 17:08 08/08/19 17:08 08/08/19 17:08 08/08/19 17:08 Constitutional -Vitals reviewed -The patient is well developed and well nourished. -Mood is pleasant. -The patient is well groomed. Psychiatric -The patient is fully alert and oriented x 3. Respiratory: -Respiratory effort normal Abdomen: -Soft abdomen -Non tender -Non distended: Left upper extremity: -No deformities. The overlying skin is intact. No obvious signs of acute trauma. -No tenderness to palpation throughout. -No significant pain with passive motion of the shoulder, elbow, wrist, and fi ngers within the limits of the bed. -Unable to obtain neurologic exam given her mental status. -Radial pulse is present; Fingers have good capillary refill. Right upper extremity: -No deformities. The overlying skin is intact. No obvious signs of acute trauma. -No tenderness to palpation throughout. -No significant pain with passive motion of the shoulder, elbow, wrist, and fingers within the limits of the bed. -Unable to obtain neurologic exam given her mental status. -Radial pulse is present; Fingers have good capillary refill. Left lower extremity: -No deformities. The overlying skin is intact. No obvious signs of acute trauma. -No tenderness to palpation throughout. -No pain with passive motion of the hip, knee, ankle, and toes within the limits of the bed. -No pain with axial loading of the thigh. -Unable to obtain neurologic exam given her mental status. -Toes have good capillary refill. Right lower extremity: -No deformities. The overlying skin is intact. Moderate ecchymosis over the anterior hip region and iliac crest region. -No tenderness to palpation throughout. -No pain with passive motion of the hip, knee, ankle, and toes within the limits of the bed. -No pain with axial loading of the thigh. -Unable to obtain neurologic exam given her mental status. -Toes have good capillary refill. Diagnostic Imaging: I did personally review and interpret x-rays and CT scan of the right hip do not show any definite fractures though there is subcutaneous stranding consistent with contusion versus hematoma, though I do not appreciate any fluid collections on this noncontrast study. Results - Labs Result Diagrams: 08/08/19 10:55 08/08/19 10:55 Labs: Abnormal lab results WBC 16.4 K/mcL (4.3-11.1) H 08/08/19 10:55 RBC 5.12 M/mcL (3.82-4.97) H 08/08/19 10:55 MCH 26.8 pg (28.0-33.3) L 08/08/19 10:55 RDW 15.4 % (11.5-14.5) H 08/08/19 10:55 MPV 8.6 fL (9.4-12.4) L 08/08/19 10:55 Potassium 3.4 mEq/L (3.5-5.1) L 08/08/19 10:55 Carbon Dioxide 19 mEq/L (23-29) L 08/08/19 10:55 Creatinine 0.58 mg/dL (0.60-1.20) L 08/08/19 10:55 Glucose 123 mg/dL (70-105) H 08/08/19 10:55 POC Glucose 120 mg/dL (70-99) H 08/08/19 17:21 Creatine Kinase 262 Units/L (30-223) H 08/08/19 10:55 Ur Specific [place] > 1.030 (1.010-1.025) H 08/08/19 11:43 Urine Protein 100 mg/dL (Neg-Trace) H 08/08/19 11:43 Urine Ketones >=160 mg/dL (Negative) H 08/08/19 11:43 Urine Blood Moderate (Negative) H 08/08/19 11:43 Urine Bilirubin Small (Negative) H 08/08/19 11:43 Urine Microscopic RBC 5-15 per hpf (0-3) H 08/08/19 11:43 Ur Squamous Epith Cells Many per lpf (None-Few) H 08/08/19 11:43 Hyaline Casts Moderate per lpf (None-Few) H 08/08/19 11:43 H & H 08/08/19 Range/Units 10:55 Hgb 13.7 (11.5-15.4) g/dL Hct 42.5 (35.3-44.9) % All other labs normal. Consult Discharge Plan - Plan Referrals: NONE,PCP [Primary Care Provider] -
[2019-08-08] MEDS: levETIRAcetam 250 MG TABLET PO SCH (21:33)
[2019-08-08] MEDS: lamoTRIgine 100 MG TABLET PO SCH (21:35)
[2019-08-09 02:23] LABS: Basophils # 0.1 K/mcL (0.0-0.2); Basophils % 0.4 %; Eosinophils # 0.2 K/mcL (0.0-0.6); Eosinophils % 1.4 %; Hematocrit 36.4 % (35.3-44.9); Immature Granulocytes % 0.4 % (0-4); Lymphocytes # 2.4 K/mcL (0.6-4.6); Lymphocytes % 18.4 %; Mean Corpuscular HGB Conc 32.4 g/dL (31.6-35.5); Mean Corpuscular Hemoglobin 27.4 pg (28.0-33.3); Mean Corpuscular Volume 84.5 fL (83.0-100.0); Mean Platelet Volume 8.6 fL (9.4-12.4); Monocytes # 1.1 K/mcL (0.0-1.3); Monocytes % 8.6 %; Neutrophils # 9.3 K/mcL (1.6-8.9); Platelet Count 290 K/mcL (140-400); Red Blood Count 4.31 M/mcL (3.82-4.97); Red Cell Distribution Width 15.2 % (11.5-14.5); Segmented Neutrophils % 70.8 %; White Blood Count 13.1 K/mcL (4.3-11.1)
[2019-08-09 02:24] LABS: Hemoglobin 11.8 g/dL (11.5-15.4)
[2019-08-09 02:26] LABS: Estimated Average Glucose 131 mg/dl
[2019-08-09 02:44] LABS: Chol/HDL Ratio 3.3 (0-4.9)
[2019-08-09 02:48] LABS: BUN/Creatinine Ratio 21 (6-26); Blood Urea Nitrogen 11 mg/dL (8-23); Calcium 8.9 mg/dL (8.6-10.3); Carbon Dioxide 20 mEq/L (23-29); Chloride 108 mEq/L (98-107); Glucose 92 mg/dL (70-105); Osmolality,Calculated 289 (280-300); Potassium 3.2 mEq/L (3.5-5.1); Sodium 140 mEq/L (136-145); eGFR For African Americans > 60 (> 60); eGFR For Non-African Americans > 60 (> 60)
[2019-08-09] MEDS: levETIRAcetam 250 MG TABLET PO SCH ×2 (06:15→17:32)
--- NOTE | 2019-08-09 07:22 | Orthopedics Progress Note ---
Date of Encounter: 08/09/19 Time of Encounter: 11:33 - Assessment and Plan (1) Hip pain, right Current Visit: Yes Status: Acute Subjective Interval history: S: The patient is resting in bed comfortably O: Afebrile and vital signs are stable Stable ecchymosis over the right iliac crest No pain with passive motion of the right hip or axial loading of the right thigh Unable to obtain meaningful neurologic exam given her mental status I did review the CT scan of the hip with Dr. To of muscular skeletal ra diology and there was not felt to be any concern for fracture on this study given her good bone quality A: Right hip contusion P: At this point patient is doing reasonably well regarding the right hip. There is now felt to be a hip fracture at this time. Should she become symptomatic we would consider a bone scan to evaluate this further, however given that this is her hemiparetic side I recommendation is observation at this point PT/OT and treatment for her stroke. Objective Vital signs: Vital Signs Temp Pulse Resp BP Pulse Ox 08/09/19 03:43 98.2 F 73 16 197/79 97 08/08/19 23:02 98.4 F 69 14 161/75 96 08/08/19 17:08 97.7 F 71 17 193/87 95 08/08/19 15:00 76 18 194/70 98 08/08/19 14:30 75 18 194/81 98 08/08/19 14:00 73 16 221/87 98 08/08/19 13:17 63 18 194/102 98 08/08/19 12:05 63 16 202/93 97 08/08/19 11:30 68 16 231/102 97 08/08/19 11:15 70 16 189/94 99 08/08/19 10:50 98.2 F 74 17 194/110 99 Intake and Output 08/08/19 08/08/19 08/09/19 15:59 23:59 07:59 Intake Total 1000 / 1000 1020 / 1020 Output Total 950 / 950 Balance 1000 / 50 -950 / 50 1020 / 1020 Intake: IV Fluids 1000 / 1000 1020 / 1020 0.9 % Sodium Chloride 1,000 ML 1000 / 1000 @ 999 mls/hr IVC .Q1H1M ONE Rx# :[id number] Potassium Chloride 40 MEQ In 0. 1020 / 1020 45% Sodium Chloride 1,000 ML @ 100 mls/hr IVC .[id number] REPLACED BY [facility] Rx# :[id number] Output: Catheter 950 / 950 Other: Weight 62.5 kg 63.1 kg Blood Glucose* 124 156 Patient Weight 08/09/19 23:59 Weight 63.1 kg - Labs CBC & BMP: 08/09/19 02:08 08/09/19 02:08 Labs: Abnormal lab results WBC 13.1 K/mcL (4.3-11.1) H 08/09/19 02:08 RBC 5.12 M/mcL (3.82-4.97) H 08/08/19 10:55 MCH 27.4 pg (28.0-33.3) L 08/09/19 02:08 RDW 15.2 % (11.5-14.5) H 08/09/19 02:08 MPV 8.6 fL (9.4-12.4) L 08/09/19 02:08 Neutrophils # 9.3 K/mcL (1.6-8.9) H 08/09/19 02:08 Potassium 3.2 mEq/L (3.5-5.1) L 08/09/19 02:08 Chloride 108 mEq/L (98-107) H 08/09/19 02:08 Carbon Dioxide 20 mEq/L (23-29) L 08/09/19 02:08 Creatinine 0.52 mg/dL (0.60-1.20) L 08/09/19 02:08 Glucose 123 mg/dL (70-105) H 08/08/19 10:55 POC Glucose 156 mg/dL (70-99) H 08/08/19 22:09 Hemoglobin A1c 6.2 % (-5.6) H 08/09/19 02:08 Creatine Kinase 262 Units/L (30-223) H 08/08/19 10:55 HDL Cholesterol 39 mg/dL (40-59) L 08/09/19 02:08 Ur Specific [place] > 1.030 (1.010-1.025) H 08/08/19 11:43 Urine Protein 100 mg/dL (Neg-Trace) H 08/08/19 11:43 Urine Ketones >=160 mg/dL (Negative) H 08/08/19 11:43 Urine Blood Moderate (Negative) H 08/08/19 11:43 Urine Bilirubin Small (Negative) H 08/08/19 11:43 Urine Microscopic RBC 5-15 per hpf (0-3) H 08/08/19 11:43 Ur Squamous Epith Cells Many per lpf (None-Few) H 08/08/19 11:43 Hyaline Casts Moderate per lpf (None-Few) H 08/08/19 11:43 Consult Discharge Plan - Plan Referrals: NONE,PCP [Primary Care Provider] -
[2019-08-09] MEDS ORDERED: Potassium Chloride Elixir 20 MEQ/15 ML UDC PO ONE (07:58)
[2019-08-09] MEDS: lamoTRIgine 100 MG TABLET PO SCH ×2 (08:14→19:40)
[2019-08-09] MEDS: amLODIPine 5 MG TABLET PO SCH (08:14)
[2019-08-09] MEDS: Insulin LISPRO 300 UNITS/3 ML VIAL SQ SCH ×3 (08:25→17:32)
[2019-08-09] MEDS: Cholecalciferol (D-3) 1,000 UNIT (25MCG) TABLET PO SCH (09:20)
--- NOTE | 2019-08-09 10:17 | Neurology Progress Note ---
<Ranjith Cates M - Last Filed: 08/09/19 13:10> Date of Encounter: 08/09/19 Time of Encounter: 08:45 Assessment and Plan (1) Lacunar infarct, acute Current Visit: Yes Status: Acute Repeat CT today. Left lenticular striatal infarct read by Dr. Gore in office. Discussed case with Dr. Gore who suggested beginning normalization of blood pressure at this time. Will need ECF once medically stable due to right sided neglect. Continue Plavix for reducing stroke risks due to patient allergy for aspirin. PT/OT consult for patients right sided weakness. Further recommendations per Dr Gore, attending neurologist, addendum Subjective Principal diagnosis: CVA Interval history: Ms. Garcia was seen at bedside. She continues to display a right sided facial droop and hemineglect, albeit with minor improvements noted from yesterday. She reports improvement in her speech today stating "that's a plus." She reports that she woke up this morning feeling "like I had a seizure." She has a history of seizure disorder with a vagal nerve stimulator in place. She denies any loss of bowel or bladder function. She denies any difficulty swallowing or choking this morning and coffee/water were seen on patients bedside table. She still has dysarthria with drooping of lift side of lower face. Patient is admitting to double vision today but is not able to ascertain which parts of visual field make it better or worse. Objective - Constitutional Vitals: Temp Pulse Resp BP Pulse Ox 98.5 F 64 16 207/80 98 08/09/19 08:05 08/09/19 08:05 08/09/19 08:05 08/09/19 08:05 08/09/19 08:05 Exam: GENERAL: Resting on left side HEENT: Right sided facial droop rest of HEENT normal LUNGS: CTA HEART: RRR, S1 S2 Audible, no murmur EXTREMITIES: No Pedal edema. DETAILED NEUROLOGICAL EXAMINATION: MENTAL STATUS: Oriented to person, place, date and situation. Memory: knows the President, Aware of recent events Recent Memory Intact, Attention span is normal Cranial Nerve Examination: CN - II: Visual Acuity, Field of Vision Normal, Pupils- size shape reaction to light and accommodation: All normal. CN III, IV, : External ocular movements were intact, Pupils were reactive, Mild Drooping of the right eyelid CN V: Sensation over the face to light touch and pinprick diminished in right lower face. Corneal reflexes not tested, jaw jerk normal. CN VII: facial asymmetry with flattening of nasolabial folds on right side of face, no difficulty in closing the eyes, no loss of forehead wrinkles, no difficulty in eye-closure, frowning or raising eyebrows. CNVIII: No significant hearing loss CN IX, X: Uvula centralized not deviated, Gag reflex: Not tested CN X1: Sternocleidomastoid, trapezius, normal or evidence of any weakness. CN X11: Dysarthric without wasting or fibrillation of tongue muscles, no deviation, tongue muscle strength normal. Motor examination: Upper limbs Proximal: Unable to lift right arm above the head. Distal- Marked weakness in proximal and distal muscles on right On formal testing 0/5 on right upper extremity 5/5 in left upper extremity Lower limbs On formal testing 1/5 on right lower extremity, 5/5 in left upper extremity Coordination: [id number] normal on left with no finger to nose movement on right. Target pursuit normal finger tapping normal on left but absent on right, Rapid alternating moment of wrist normal on left but absent on right Sensory system: Superficial sensations- Touch normal on left, markedly diminished on right. Pain- Pinprick, Temperature all normal on left, markedly diminished on right, Deep sensation normal, Joint position sense normal. Cortical sensation, Tactile discrimination, localization and extinction all normal. Deep tendon reflexes. Symmetrical bilateral, No evidence of Babinski. No sign of meningeal irritation Gait Examination: Deferred - VTE Documentation of Mechanical Device: Intermittent pneumatic compression device Results - Laboratory Findings CBC and BMP: 08/09/19 02:08 08/09/19 02:08 Abnormal lab findings: Abnormal lab results WBC 13.1 K/mcL (4.3-11.1) H 08/09/19 02:08 RBC 5.12 M/mcL (3.82-4.97) H 08/08/19 10:55 MCH 27.4 pg (28.0-33.3) L 08/09/19 02:08 RDW 15.2 % (11.5-14.5) H 08/09/19 02:08 MPV 8.6 fL (9.4-12.4) L 08/09/19 02:08 Neutrophils # 9.3 K/mcL (1.6-8.9) H 08/09/19 02:08 Potassium 3.2 mEq/L (3.5-5.1) L 08/09/19 02:08 Chloride 108 mEq/L (98-107) H 08/09/19 02:08 Carbon Dioxide 20 mEq/L (23-29) L 08/09/19 02:08 Creatinine 0.52 mg/dL (0.60-1.20) L 08/09/19 02:08 Glucose 123 mg/dL (70-105) H 08/08/19 10:55 POC Glucose 156 mg/dL (70-99) H 08/08/19 22:09 Hemoglobin A1c 6.2 % (-5.6) H 08/09/19 02:08 Creatine Kinase 262 Units/L (30-223) H 08/08/19 10:55 HDL Cholesterol 39 mg/dL (40-59) L 08/09/19 02:08 Ur Specific [place] > 1.030 (1.010-1.025) H 08/08/19 11:43 Urine Protein 100 mg/dL (Neg-Trace) H 08/08/19 11:43 Urine Ketones >=160 mg/dL (Negative) H 08/08/19 11:43 Urine Blood Moderate (Negative) H 08/08/19 11:43 Urine Bilirubin Small (Negative) H 08/08/19 11:43 Urine Microscopic RBC 5-15 per hpf (0-3) H 08/08/19 11:43 Ur Squamous Epith Cells Many per lpf (None-Few) H 08/08/19 11:43 Hyaline Casts Moderate per lpf (None-Few) H 08/08/19 11:43 Consult Discharge Plan - Plan Referrals: NONE,PCP [Primary Care Provider] - <Len Gore - Last Filed: 08/09/19 18:11> Date of Encounter: 08/09/19 Assessment and Plan (1) Lacunar infarct, acute Current Visit: Yes Status: Acute I have personally performed a [id number] assessment of the patient and have reviewed the PA/INK JET OPERATOR note. My impressions are as follows:Chart was reviewed, patient was seen and examined independently. Case was discussed with Dr. Cates. I agree with his documentation of the subjective portion of the report as well as assessment and plan. Patient today continues to have dense weakness of the right upper and right lower extremity along with right facial droop and dysarthric speech. I did review the CT scan of the brain which was repeated today. Does reveal an infarct present in the left basal ganglia which is more clearly identifiable today than it was yesterday. Also significant chronic ischemic changes identified in the deep white matter and basal ganglia symmetrically. Patient remains hypertensive. I am not convinced she had a seizure. No fecal incontinence or tongue biting. Simply recommend maintaining her Keppra, as well as Plavix. I begin normalizing blood pressure at this point. Aggressive management of other stroke risk factors is paramount. She will need placement in an inpatient rehabilitation facility upon discharge. 25 minutes was spent with patient today with greater than 50% of that time being spent in [id number] contact consisting of counciling and coordinating care. Subjective Interval history: Chart was reviewed, patient was seen and examined independently. I agree with the subjective history as stated above. Objective - Constitutional Vitals: Temp Pulse Resp BP Pulse Ox 98.5 F 76 16 169/76 94 08/09/19 15:28 08/09/19 15:28 08/09/19 15:28 08/09/19 15:28 08/09/19 15:28 Exam: I have personally performed a [id number] assessment of the patient and have reviewed the PA/INK JET OPERATOR note. My impressions are as follows: I agree with the neurologic examination is documented above by Dr. Cates. Results - Laboratory Findings CBC and BMP: 08/09/19 02:08 08/09/19 02:08 Abnormal lab findings: Abnormal lab results WBC 13.1 K/mcL (4.3-11.1) H 08/09/19 02:08 RBC 5.12 M/mcL (3.82-4.97) H 08/08/19 10:55 MCH 27.4 pg (28.0-33.3) L 08/09/19 02:08 RDW 15.2 % (11.5-14.5) H 08/09/19 02:08 MPV 8.6 fL (9.4-12.4) L 08/09/19 02:08 Neutrophils # 9.3 K/mcL (1.6-8.9) H 08/09/19 02:08 Potassium 3.2 mEq/L (3.5-5.1) L 08/09/19 02:08 Chloride 108 mEq/L (98-107) H 08/09/19 02:08 Carbon Dioxide 20 mEq/L (23-29) L 08/09/19 02:08 Creatinine 0.52 mg/dL (0.60-1.20) L 08/09/19 02:08 Glucose 123 mg/dL (70-105) H 08/08/19 10:55 POC Glucose 113 mg/dL (70-99) H 08/09/19 17:26 Hemoglobin A1c 6.2 % (-5.6) H 08/09/19 02:08 Creatine Kinase 262 Units/L (30-223) H 08/08/19 10:55 HDL Cholesterol 39 mg/dL (40-59) L 08/09/19 02:08 Ur Specific [place] > 1.030 (1.010-1.025) H 08/08/19 11:43 Urine Protein 100 mg/dL (Neg-Trace) H 08/08/19 11:43 Urine Ketones >=160 mg/dL (Negative) H 08/08/19 11:43 Urine Blood Moderate (Negative) H 08/08/19 11:43 Urine Bilirubin Small (Negative) H 08/08/19 11:43 Urine Microscopic RBC 5-15 per hpf (0-3) H 08/08/19 11:43 Ur Squamous Epith Cells Many per lpf (None-Few) H 08/08/19 11:43 Hyaline Casts Moderate per lpf (None-Few) H 08/08/19 11:43
--- NOTE | 2019-08-09 14:00 | Internal Med Progress Note ---
Hospitalist Progress Note - Encounter Date of Encounter: 08/09/19 Time of Encounter: 10:20 - Subjective Interval History: Patient was seen this morning. She stated have dysarthria and right facial droop however her speech is improving although still slurred. Denied chest pain, shortness of breath or palpitation. She had no fever, chills or night sweats. - Exam Vitals: Temp Pulse Resp BP Pulse Ox 98.3 F 73 16 173/83 95 08/09/19 11:46 08/09/19 11:46 08/09/19 11:46 08/09/19 11:46 08/09/19 11:46 Exam: General: Patient is alert, oriented 3. No distress Head: Atraumatic, Eye: EOMI, PERRLA, no scleral icterus noted. ENT: Mucous membranes moist. Neck: Normal inspection, Respiratory: No respiratory distress, rhonchi, or wheezes noted. Cardiovascular: Regular rate and regular rhythm, No murmurs, rubs, or gallops. GI: Soft, nondistended, normal bowel sounds. Extremities: Right hip red discoloration consistent with hematoma. No external or internal rotation of the right lower extremity. Pulses are intact in the right and the left dorsalis pedis Neurological: Slurred speech, right facial droop. Right proptosis, Right sided Upper and Lower extermity weakness, decrease sensation. Babinski sign is up going and the right lower extremity. Psychiatric: normal affect, normal mood. Skin: Dry, intact, warm. Normal color. No rashes. - Assessment and Plan (1) Cerebrovascular accident Current Visit: Yes Status: Acute (2) Seizure disorder Current Visit: Yes Status: Acute (3) Hip hematoma, right Current Visit: Yes Status: Acute (4) T2DM (type 2 diabetes mellitus) Current Visit: Yes Status: Acute (5) Hypothyroidism Current Visit: Yes Status: Acute - Summary of Assessment and Plan Summary of Assessment and Plan: 68-year-old female with history of type II DM, seizure disorder, came into the hospital due to weakness and fall after she was found on the floor for unknown time. Her symptoms were managed as following: CVA: - Left lenticular striatal infarct by neuerology. unable to attempt MRI given her seizure stimulation. - CT head without finding of acute bleed, CTA head without a finding of high grade stenosis. CTA neck without arterial narrowing. - Hx of Aspirin allergy, continue lipitor and plavix in the ER. - Echo with saline negative for PFO, NIH scale, Aspiration precautions. PT/OT as the patient was cleared by ortho. - Consulted to quit smoking. HTN: Continue norvasc, added coreg for better control. Adrenal nodules: on CT abdomen, recommendation to repeat with IV contrast. Leukocytosis: No sign of infection, UA is -. WBC is down trending, she is afebrile. Check CBC tomorrow Right hip hematoma: - No sign of fracture on CT hip and x-ray of the hip. Orthopedic surgery is consulted. no fracture as per them, PT/OT ordered. Seizure disorder: - Continue home medication Type II DM: Hold oral hypoglycemic. on sliding scale TIDac Hypothyroidism: Continue home medication. DVT prophylaxis: SCD - Time Spent with Patient Total time spent is greater than 50% in coordination of care (as documented) at patient's floor/unit and/or counseling patient: Plan of Care Discussed with: patient Internal Medicine: Result - Labs CBC & Chem 7: 08/09/19 02:08 08/09/19 02:08 Labs: Short CBC 08/09/19 Range/Units 02:08 WBC 13.1 H (4.3-11.1) K/mcL Hgb 11.8 D (11.5-15.4) g/dL Hct 36.4 (35.3-44.9) % Plt Count 290 (140-400) K/mcL Neutrophils # 9.3 H (1.6-8.9) K/mcL BMP 08/09/19 02:08 Sodium 140 Potassium 3.2 L Chloride 108 H Carbon Dioxide 20 L BUN 11 Creatinine 0.52 L Glucose 92 Calcium 8.9 - ABG Interpretation ABG results: PT/INR, D-dimer PT 10.9 Seconds (9.4-12.1) 08/08/19 10:55 - Impressions Impressions Head CT 08/08/19 11:03 IMPRESSION: No acute intracranial abnormality. Findings were discussed with Dr. Tsang at 11:23am on 08/08/2019. D/ / 08/08/2019 11:23:41 Ulices Mcclendon MD / earnold Interpreting Provider: Ulices Mcclendon MD Head CTA 08/08/19 11:03 IMPRESSION: No high-grade stenosis or focal occlusion involving intracranial vasculature. No evidence of intracranial aneurysm. D/ / 08/08/2019 11:33:16 Ulices Mcclendon MD / rylan Interpreting Provider: Ulices Mcclendon MD Hip CT 08/08/19 13:57 IMPRESSION: 1. No acute osseous finding to account for patient's right hip pain. Please note that CT may not reveal non-displaced fractures and stress changes. If that is the clinical suspicion, MRI is the study of choice. 2. Subcutaneous stranding over the right hip and the right gluteus. Given the clinical context, this may represent a hematoma. D/ / 08/08/2019 14:47:10 Garrick Parson MD / Meagan Childress Interpreting Provider: Garrick Parson MD Abdomen/Pelvis CT 08/08/19 15:[address]: 1[address] evidence of acute intra-or intrapelvic process. 2. Bilateral adrenal gland nodules are new, the right definite reflects benign adenoma, the left is nonspecific but likely reflect lipid poor adenoma. Correlation with unenhanced CT abdomen greater than 48 hours from most recent IV contrast administration recommended for characterization. This lesion very likely reflects an adenoma. There is also mild nodular hyperplasia left adrenal gland. 3. Moderate size hiatal hernia. 4. Mild intra and extrahepatic bile duct dilatation status post cholecystectomy typical of reservoir effect. 5. Calcific atherosclerotic disease aorta. RECOMMENDATIONS: unenhanced CT abdomen greater than 48 hours from most recent IV contrast administration D/ / Beto Chery / Beto Chery Interpreting Provider: Beto Chery Neck CTA 08/08/19 16:04 IMPRESSION: No focal significant arterial narrowing is noted in the neck or the visualized portions of the head. D/ / Anant Hernandez / Anant Hernandez Interpreting Provider: Anant Hernandez Echocardiogram 08/08/19 16:27 Impressions: LVEF 65-70%. Mild concentric left ventricular hypertrophy. Mild left ventricular diastolic dysfunction. Normal right ventricular structure and function. No significant valvular dysfunction. No pulmonary hypertension. Non-diagnostic of PFO with agitated saline contrast. Left Ventricular Wall Motion: Rest Echo Findings All wall segments showed normal motion. Findings: Study Quality * Technically adequate exam. ECG Findings * Normal sinus rhythm. Left Ventricle * LVEF 65-70%. * Normal LV chamber size, wall thickness and systolic function. * Mild concentric left ventricular hypertrophy. * Mild left ventricular diastolic dysfunction. Right Ventricle * Normal right ventricular structure and function. Left Atrium * Normal left atrial size. Right Atrium * Normal right atrial size. Interatrial Septum * Non-diagnostic of PFO with agitated saline contrast.. Aortic Valve * Trileaflet aortic valve with normal function. * No aortic stenosis. * No aortic regurgitation. Mitral Valve * Normal mitral valve structure. * No mitral stenosis. * No mitral regurgitation. Tricuspid Valve * Normal tricuspid valve structure. * No tricuspid stenosis. * Trace tricuspid regurgitation. * Estimated RVSP is 30 mmHg. * Estimated RA pressure is 3 mmHg. * No pulmonary hypertension. Pulmonic Valve * Pulmonic valve is not well visualized. * No pulmonic stenosis. * No pulmonic regurgitation. Aorta * Normally sized aortic root. Pericardium * The pericardium appears normal. IVC * The IVC is not dilated. * > 50% respiratory change Head CT 08/09/19 11:00 IMPRESSION: Cerebral atrophy. Chronic small vessel ischemic changes. No acute brain parenchymal abnormality. D/ / 08/09/2019 12:24:28 Katharine Meraz MD / clementina Interpreting Provider: Katharine Meraz MD - VTE Documentation of Mechanical Device: Intermittent pneumatic compression device Consult Discharge Plan - Plan Referrals: NONE,PCP [Primary Care Provider] - (1) Cerebrovascular accident Qualifiers: CVA mechanism: unspecified Qualified Code(s): I63.9 - Cerebral infarction, unspecified
[2019-08-10 04:34] LABS: Hematocrit 37.1 % (35.3-44.9); Mean Corpuscular HGB Conc 32.3 g/dL (31.6-35.5); Mean Corpuscular Hemoglobin 26.7 pg (28.0-33.3); Mean Corpuscular Volume 82.6 fL (83.0-100.0); Mean Platelet Volume 8.8 fL (9.4-12.4); Platelet Count 320 K/mcL (140-400); Red Blood Count 4.49 M/mcL (3.82-4.97); Red Cell Distribution Width 15.3 % (11.5-14.5); White Blood Count 9.1 K/mcL (4.3-11.1)
[2019-08-10 04:42] LABS: BUN/Creatinine Ratio 18 (6-26); Blood Urea Nitrogen 9 mg/dL (8-23); Carbon Dioxide 26 mEq/L (23-29); Chloride 106 mEq/L (98-107); Glucose 101 mg/dL (70-105); Osmolality,Calculated 291 (280-300); Potassium 3.1 mEq/L (3.5-5.1); Sodium 141 mEq/L (136-145); eGFR For African Americans > 60 (> 60); eGFR For Non-African Americans > 60 (> 60)
[2019-08-10] MEDS: levETIRAcetam 250 MG TABLET PO SCH ×2 (05:35→17:29)
[2019-08-10] MEDS: Insulin LISPRO 300 UNITS/3 ML VIAL SQ SCH ×3 (09:28→17:26)
[2019-08-10] MEDS: Cholecalciferol (D-3) 1,000 UNIT (25MCG) TABLET PO SCH (09:31)
[2019-08-10] MEDS: amLODIPine 5 MG TABLET PO SCH (09:31)
[2019-08-10] MEDS: lamoTRIgine 100 MG TABLET PO SCH ×2 (09:31→20:42)
--- NOTE | 2019-08-10 09:38 | Neurology Progress Note ---
<Ranjith Cates M - Last Filed: 08/10/19 11:03> Date of Encounter: 08/10/19 Time of Encounter: 09:10 Assessment and Plan (1) Lacunar infarct, acute Current Visit: Yes Status: Acute Patient showing improvement in sensory examination from previous exams. Still displaying a right sided hemineglect. Dysarthria improving. Continue PT/OT. Andriy clay will need ECF upon discharge due to current inability to care for her own basic needs. Continue plavix and keppra. Continue blood pressure normalization. Recommend continued management of stroke risk factors. Subjective Principal diagnosis: CVA Interval history: Ms. Garcia was seen at bedside. She continues to display a right sided facial droop and hemineglect. Her speech is mildly improved today but with continued dysarthric nature. She is tearful at time of interview and states "I'm like a baby learning to walk again." She was also reminiscing on her sisters in December and was tearful discussing that loss. Despite her depressed mood today she remains motivated to participate in her physical therapy. She understands the need for ECF upon discharge and is in agreement with the plan to continue physical therapy. She states she had to have help with feeding yesterday as she is right handed and finds it difficult to feed herself with her left hand. She denies numbness/tingling, nausea, vomiting, changes in vision, changes in hearing, or difficulty swallowing. Objective - Constitutional Vitals: Temp Pulse Resp BP Pulse Ox 98.6 F 70 16 176/80 94 08/10/19 07:49 08/10/19 07:49 08/10/19 07:49 08/10/19 07:49 08/10/19 07:49 Exam: GENERAL: Comfortable in no acute distress HEENT: Normal LUNGS: CTA HEART: RRR, S1 S2 Audible, no murmur EXTREMITIES: No Pedal edema. DETAILED NEUROLOGICAL EXAMINATION: MENTAL STATUS: Oriented to person, place, situation, month and year but not date. Memory: knows the President, Aware of recent events. Recent Memory Intact, Attention span is normal. Cranial Nerve Examination: CN - II: Visual Acuity, Field of Vision Normal, Pupils- size shape reaction to light and accommodation: All normal. CN III, IV, : External ocular movements were intact, Pupils were reactive, Nodrooping of the eyelids CN V: Sensation over the face to light touch and pinprick all normal. Corneal reflexes not tested, jaw jerk normal. CN VII: facial asymmetry noted with flattening of nasolabial folds on right side of face, no difficulty in closing the eyes, no loss of forehead wrinkles, no difficulty in eye-closure, frowning raising eyebrows. CNVIII: No significant hearing loss CN IX, X: Uvula centralized not deviated, Gag reflex: Not tested CN X1: Sternocleidomastoid, trapezius, normal or evidence of any weakness. CN X11: Dysarthria present, no wasting or fibrillation of tongue muscles, no deviation, tongue muscle strength normal. Motor examination: Upper limbs Proximal- Unable to lift right arm or move fingers of right hand Distal- No motor activity of right arm On formal testing 5/5 of left upper extremity, 0/5 of right upper extremity Lower limbs On formal testing 5/5 of left lower extremity, 0/5 of right lower extremity Coordination: [id number] normal on left. Rapid alternating moment of lest wrist normal Sensory system: Superficial sensations- Touch normal. Pain- Pinprick, Temperature all normal, Deep sensation normal, Joint position sense normal. Cortical sensation, Tactile discrimination, localization and extinction all normal. Deep tendon reflexes. Symmetrical bilateral No sign of meningeal irritation Gait Examination: Deferred - VTE Documentation of Mechanical Device: Intermittent pneumatic compression device Results - Laboratory Findings CBC and BMP: 08/10/19 03:54 08/10/19 03:54 Abnormal lab findings: Abnormal lab results WBC 13.1 K/mcL (4.3-11.1) H 08/09/19 02:08 RBC 5.12 M/mcL (3.82-4.97) H 08/08/19 10:55 MCV 82.6 fL (83.0-100.0) L 08/10/19 03:54 MCH 26.7 pg (28.0-33.3) L 08/10/19 03:54 RDW 15.3 % (11.5-14.5) H 08/10/19 03:54 MPV 8.8 fL (9.4-12.4) L 08/10/19 03:54 Neutrophils # 9.3 K/mcL (1.6-8.9) H 08/09/19 02:08 Potassium 3.1 mEq/L (3.5-5.1) L 08/10/19 03:54 Chloride 108 mEq/L (98-107) H 08/09/19 02:08 Carbon Dioxide 20 mEq/L (23-29) L 08/09/19 02:08 Creatinine 0.49 mg/dL (0.60-1.20) L 08/10/19 03:54 Glucose 123 mg/dL (70-105) H 08/08/19 10:55 POC Glucose 158 mg/dL (70-99) H 08/09/19 19:57 Hemoglobin A1c 6.2 % (-5.6) H 08/09/19 02:08 Creatine Kinase 262 Units/L (30-223) H 08/08/19 10:55 HDL Cholesterol 39 mg/dL (40-59) L 08/09/19 02:08 Ur Specific Ivel > 1.030 (1.010-1.025) H 08/08/19 11:43 Urine Protein 100 mg/dL (Neg-Trace) H 08/08/19 11:43 Urine Ketones >=160 mg/dL (Negative) H 08/08/19 11:43 Urine Blood Moderate (Negative) H 08/08/19 11:43 Urine Bilirubin Small (Negative) H 08/08/19 11:43 Urine Microscopic RBC 5-15 per hpf (0-3) H 08/08/19 11:43 Ur Squamous Epith Cells Many per lpf (None-Few) H 08/08/19 11:43 Hyaline Casts Moderate per lpf (None-Few) H 08/08/19 11:43 Consult Discharge Plan - Plan Referrals: NONE,PCP [Primary Care Provider] - <Len Gore - Last Filed: 08/10/19 16:12> Date of Encounter: 08/10/19 Assessment and Plan (1) Lacunar infarct, acute Current Visit: Yes Status: Acute I have personally performed a [id number] assessment of the patient and have reviewed the PA/VASCULAR RADIOLOGIST note. My impressions are as follows: Case was discussed with Dr. Cates and I agree with this impression and plan as stated above. Unfortunately patient has experienced a lacunar infarct in the left basal ganglia resulting in dense right hemiparesis. And this juncture I do not see evidence of lakisha-neglect. However, I expect that she will have long-term deficits as a result. Her blood pressure is improved today. I would recommend normalizing it prior to discharge and aggressively managing her other stroke risk factors. She should maintain Plavix, and will need aggressive inpatient rehabilitation and attempt to try to maximize her recovery. Subjective Interval history: The chart was reviewed, the patient was seen and examined independently. The case was discussed with Dr. Cates. I agree with his assessment of the subjective history as documented above. Objective - Constitutional Vitals: Temp Pulse Resp BP Pulse Ox 97.9 F 63 16 171/80 96 08/10/19 12:13 08/10/19 12:13 08/10/19 12:13 08/10/19 12:13 08/10/19 12:13 Exam: I have personally performed a [id number] assessment of the patient and have reviewed the PA/VASCULAR RADIOLOGIST note. My impressions are as follows: I agree with the neurologic examination is documented above. Results - Laboratory Findings CBC and BMP: 08/10/19 03:54 08/10/19 03:54 Abnormal lab findings: Abnormal lab results WBC 13.1 K/mcL (4.3-11.1) H 08/09/19 02:08 RBC 5.12 M/mcL (3.82-4.97) H 08/08/19 10:55 MCV 82.6 fL (83.0-100.0) L 08/10/19 03:54 MCH 26.7 pg (28.0-33.3) L 08/10/19 03:54 RDW 15.3 % (11.5-14.5) H 08/10/19 03:54 MPV 8.8 fL (9.4-12.4) L 08/10/19 03:54 Neutrophils # 9.3 K/mcL (1.6-8.9) H 08/09/19 02:08 Potassium 3.1 mEq/L (3.5-5.1) L 08/10/19 03:54 Chloride 108 mEq/L (98-107) H 08/09/19 02:08 Carbon Dioxide 20 mEq/L (23-29) L 08/09/19 02:08 Creatinine 0.49 mg/dL (0.60-1.20) L 08/10/19 03:54 Glucose 123 mg/dL (70-105) H 08/08/19 10:55 POC Glucose 158 mg/dL (70-99) H 08/09/19 19:57 Hemoglobin A1c 6.2 % (-5.6) H 08/09/19 02:08 Creatine Kinase 262 Units/L (30-223) H 08/08/19 10:55 HDL Cholesterol 39 mg/dL (40-59) L 08/09/19 02:08 Ur Specific Ivel > 1.030 (1.010-1.025) H 08/08/19 11:43 Urine Protein 100 mg/dL (Neg-Trace) H 08/08/19 11:43 Urine Ketones >=160 mg/dL (Negative) H 08/08/19 11:43 Urine Blood Moderate (Negative) H 08/08/19 11:43 Urine Bilirubin Small (Negative) H 08/08/19 11:43 Urine Microscopic RBC 5-15 per hpf (0-3) H 08/08/19 11:43 Ur Squamous Epith Cells Many per lpf (None-Few) H 08/08/19 11:43 Hyaline Casts Moderate per lpf (None-Few) H 08/08/19 11:43
--- NOTE | 2019-08-10 11:44 | Internal Med Progress Note ---
Hospitalist Progress Note - Encounter Date of Encounter: 08/10/19 Time of Encounter: 11:40 - Subjective Interval History: Patient was seen and examined at bedside today. Patient complain SLURRING of speech. She complained of right-sided weakness. Patient reports that she is improving well. She denied any fever and chills. - Exam Vitals: Temp Pulse Resp BP Pulse Ox 98.6 F 70 16 176/80 94 08/10/19 07:49 08/10/19 07:49 08/10/19 07:49 08/10/19 07:49 08/10/19 07:49 Exam: General: Patient is alert, oriented 3. No distress Respiratory: No respiratory distress, rhonchi, or wheezes noted. Cardiovascular: Regular rate and regular rhythm, No murmurs, rubs, or gallops. GI: Soft, nondistended, normal bowel sounds. Extremities: Right hip red discoloration consistent with hematoma. No external or internal rotation of the right lower extremity. Pulses are intact in the right and the left dorsalis pedis Neurological: Slurred speech, right facial droop. Right proptosis, Right sided Upper and Lower extermity weakness, sensation sensation has been improving.. Babinski sign is up going and the right lower extremity. Psychiatric: normal affect, normal mood. Skin: Dry, intact, warm. Normal color. No rashes. - Assessment and Plan (1) Cerebrovascular accident Current Visit: Yes Status: Acute Assessment and Plan: Patient presents to the emergency room with complaint of right-sided weakness. Patient had CT scan done. MRI was not done due to patient had a seizure stimulator placed. Neurology was consulted. Per neurology, patient had acute infarct in left lenticular striatal region - CTA head and neck without any stenotic finding - We will continue Plavix and statin - Apical was negative for PFO - Continue NIH stroke scale assessment aspiration precaution - PT OT will see patient today since patient has been cleared by orthopedic (for right hip hematoma) to proceed with evaluation - Pt will need rehabilitation placement. Anticipate discharge in a day or two (2) Hip hematoma, right Current Visit: Yes Status: Acute Assessment and Plan: Orthopedic on consult. We will continue to monitor. (3) Seizure disorder Current Visit: Yes Status: Acute Assessment and Plan: Continue Keppra and Lamictal. (4) T2DM (type 2 diabetes mellitus) Current Visit: Yes Status: Acute Assessment and Plan: Continue sliding scale insulin. (5) Hypothyroidism Current Visit: Yes Status: Acute Assessment and Plan: Continue levothyroxine 88 mcg - Time Spent with Patient Total time spent is greater than 50% in coordination of care (as documented) at patient's floor/unit and/or counseling patient: 25 - 35 minutes Plan of Care Discussed with: patient Internal Medicine: Result - Labs CBC & Chem 7: 08/10/19 03:54 08/10/19 03:54 Labs: Short CBC 08/10/19 Range/Units 03:54 WBC 9.1 (4.3-11.1) K/mcL Hgb 12.0 (11.5-15.4) g/dL Hct 37.1 (35.3-44.9) % Plt Count 320 (140-400) K/mcL BMP 08/10/19 03:54 Sodium 141 Potassium 3.1 L Chloride 106 Carbon Dioxide 26 BUN 9 Creatinine 0.49 L Glucose 101 Calcium 9.0 - ABG Interpretation ABG results: PT/INR, D-dimer PT 10.9 Seconds (9.4-12.1) 08/08/19 10:55 - Impressions Impressions Hip CT 08/08/19 13:57 IMPRESSION: 1. No acute osseous finding to account for patient's right hip pain. Please note that CT may not reveal non-displaced fractures and stress changes. If that is the clinical suspicion, MRI is the study of choice. 2. Subcutaneous stranding over the right hip and the right gluteus. Given the clinical context, this may represent a hematoma. D/ / 08/08/2019 14:47:10 Garrick Parson MD / Meagan Childress Interpreting Provider: Garrick Parson MD Head CT 08/09/19 11:00 IMPRESSION: Cerebral atrophy. Chronic small vessel ischemic changes. No acute brain parenchymal abnormality. D/ / 08/09/2019 12:24:28 Katharine Meraz MD / [facility] Interpreting Provider: Katharine Meraz MD - VTE Documentation of Mechanical Device: Intermittent pneumatic compression device Consult Discharge Plan - Plan Referrals: NONE,PCP [Primary Care Provider] - (1) Cerebrovascular accident Qualifiers: CVA mechanism: unspecified Qualified Code(s): I63.9 - Cerebral infarction, unspecified
--- NOTE | 2019-08-10 12:00 | Electrocardiograph Report ---
[address] [place], [place] [address] Test Date: 2019-08-08 Pat Name: Pratima Garcia Department: [id number] Room: 3B31 Gender: F [employer] Install[employer]: : 1950 Requested By: Josh Sands Order Number: [id number] Reading MD: Owen Chapman Measurements Intervals [place] Rate: 71 P: 82 MS: 128 QRS: 70 QRSD: 85 T: -21 QT: 457 QTc: 497 Interpretive Statements Sinus rhythm Borderline repolarization abnormality Borderline prolonged QT interval BASELINE ARTIFACT Electronically Signed On 08-10-2019 11:58:28 EDT by Owen Chapman
[2019-08-11] MEDS: levETIRAcetam 250 MG TABLET PO SCH ×2 (05:16→17:35)
[2019-08-11 06:31] LABS: BUN/Creatinine Ratio 17 (6-26); Blood Urea Nitrogen 9 mg/dL (8-23); Calcium 9.1 mg/dL (8.6-10.3); Carbon Dioxide 28 mEq/L (23-29); Chloride 103 mEq/L (98-107); Glucose 138 mg/dL (70-105); Osmolality,Calculated 293 (280-300); Potassium 3.1 mEq/L (3.5-5.1); Sodium 141 mEq/L (136-145); eGFR For African Americans > 60 (> 60); eGFR For Non-African Americans > 60 (> 60)
[2019-08-11] MEDS: Insulin LISPRO 300 UNITS/3 ML VIAL SQ SCH ×3 (09:32→17:34)
[2019-08-11] MEDS: Cholecalciferol (D-3) 1,000 UNIT (25MCG) TABLET PO SCH (09:32)
[2019-08-11] MEDS: amLODIPine 5 MG TABLET PO SCH (09:33)
[2019-08-11] MEDS: lamoTRIgine 100 MG TABLET PO SCH ×2 (09:33→20:31)
--- NOTE | 2019-08-11 11:12 | Internal Med Progress Note ---
Hospitalist Progress Note - Encounter Date of Encounter: 08/11/19 Time of Encounter: 11:10 - Subjective Interval History: Pt was seen and examined at bed side today. Patient reports right-sided facial drop and weakness. Denies any fever, chills, nausea, vomiting, chest pain and palpitations. - Exam Vitals: Temp Pulse Resp BP Pulse Ox 98.1 F 69 18 135/80 95 08/11/19 10:54 08/11/19 10:54 08/11/19 10:54 08/11/19 10:54 08/11/19 10:54 Exam: General: Patient is alert, oriented 3. No distress Respiratory: No respiratory distress, rhonchi, or wheezes noted. Cardiovascular: Regular rate and regular rhythm, No murmurs, rubs, or gallops. GI: Soft, nondistended, normal bowel sounds. Extremities: Right hip red discoloration consistent with hematoma. No external or internal rotation of the right lower extremity. Pulses are intact in the right and the left dorsalis pedis Neurological: Slurred speech, right facial droop. Right proptosis, Right sided Upper and Lower extermity weakness, sensation sensation has been improving.. Babinski sign is up going and the right lower extremity. Psychiatric: normal affect, normal mood. Skin: Dry, intact, warm. Normal color. No rashes. - Assessment and Plan (1) Cerebrovascular accident Current Visit: Yes Status: Acute Assessment and Plan: Patient was admitted for CVA. - Continue statin and Plavix. - Continue NIH stroke scale assessment aspiration precaution - PT OT will see patient today since patient has been cleared by orthopedic (for right hip hematoma) to proceed with evaluation - Pt will need rehabilitation placement. Anticipate discharge tomorrow (2) Hip hematoma, right Current Visit: Yes Status: Acute Assessment and Plan: Orthopedic on consult. We will continue to monitor. (3) Seizure disorder Current Visit: Yes Status: Acute Assessment and Plan: Continue Keppra and Lamictal. (4) T2DM (type 2 diabetes mellitus) Current Visit: Yes Status: Acute Assessment and Plan: Continue sliding scale insulin. (5) Hypothyroidism Current Visit: Yes Status: Acute Assessment and Plan: Continue levothyroxine 88 mcg - Time Spent with Patient Total time spent is greater than 50% in coordination of care (as documented) at patient's floor/unit and/or counseling patient: 25 - 35 minutes Plan of Care Discussed with: patient Internal Medicine: Result - Labs CBC & Chem 7: 08/10/19 03:54 08/11/19 05:49 Labs: BMP 08/11/19 05:49 Sodium 141 Potassium 3.1 L Chloride 103 Carbon Dioxide 28 BUN 9 Creatinine 0.52 L Glucose 138 H Calcium 9.1 - ABG Interpretation ABG results: PT/INR, D-dimer PT 10.9 Seconds (9.4-12.1) 08/08/19 10:55 - VTE Documentation of Mechanical Device: Intermittent pneumatic compression device Consult Discharge Plan - Plan Referrals: NONE,PCP [Primary Care Provider] - (1) Cerebrovascular accident Qualifiers: CVA mechanism: unspecified Qualified Code(s): I63.9 - Cerebral infarction, unspecified
--- NOTE | 2019-08-11 15:04 | Neurology Progress Note ---
Date of Encounter: 08/11/19 Time of Encounter: 15:00 Assessment and Plan (1) Lacunar infarct, acute Current Visit: Yes Status: Acute Dysarthria improving when compared to prior notes and the patient notes improvement in speech. Hemiparesis persists and most likely this will result in long-term deficits. Continue with PT/OT and inpatient rehab. Maintain Plavix and Statin agent. I discussed aggressive risk factor modifications and smoking cessation. Okay to normalize BP. F/u with neurology in 7-10 days of d/c. Neurology will sign off at this time. Subjective Principal diagnosis: CVA Interval history: Seen in f/u for acute CVA. No new deficits found on exam. Clinically, she is stable. She denies any new complaints. Objective - Constitutional Vitals: Temp Pulse Resp BP Pulse Ox 98.1 F 69 18 135/80 95 08/11/19 10:54 08/11/19 10:54 08/11/19 10:54 08/11/19 10:54 08/11/19 10:54 Exam: Examination: General Examination: *CONSTITUTIONAL: Alert and oriented x3, no acute distress *GENERAL APPEARANCE OF PATIENT ill appearing elderly female *EYES: pupils equal, round, reactive to light and accommodation, conjunctiva clear *CARDIOVASCULAR: no peripheral edema, distal temperature normal, dorsalis pedis pulses normal. Refer to vital signs * MUSCULOSKELETAL: *GAIT AND STATION: deferred d/t hemiplegia of the right side *ASSESSMENT OF MUSCLE STRENGTH IN THE UPPER AND LOWER EXTREMITIES left deltoid, bicep, tricep, forensic nurse strength, hip flexors ,anterior tibialis, dorsoflexion of the foot 4/5. All muscle groups of the RUE, RLE are 0/5 *MUSCLE TONE IN THE UPPER AND LOWER EXTREMITIES normal. No abnormal movements, fasciculations or atrophy identified. Neurological: *ORIENTATION to person, situation, time and place *LANGUAGE AND FUNCTION no significant aphasia *ATTENTION AND CONCENTRATION are normal *LANGUAGE FUNCTION no significant aphasia. Dysarthria persists *FUND OF KNOWLEDGE aware of current events, past history, vocabulary *MENTAL attention span and concentration normal. *CN II optic fundi were normal, no papilledema noted. *CN III,IV, PERRLA extraocular eye movements were full, no nystagmus and no ptosis noted. *CN V shows normal sensation and jaw opens symmetrically. *CN VII shows normal facial movement symmetrically, upper and lower bilaterally. *CN VIII shows no significant hearing loss on exam *CN IX-X palate elevated symmetrically *CN XI normal strength in the sternocleidomastoid muscles, symmetrical shoulder shrugging. *CN XII tongue protruded in the midline, with normal strength and movement. *SENSORY EXAMINATION light touch intact *REFLEXES: deep tendon reflexes were symmetrical diffusely, no pathological reflexes were noted. *CEREBELLAR TESTING normal finger to nose, heel/knee/wilson *PAIN LEVEL 0/10 - VTE Documentation of Mechanical Device: Intermittent pneumatic compression device Results - Laboratory Findings CBC and BMP: 08/10/19 03:54 08/11/19 05:49 Abnormal lab findings: Abnormal lab results WBC 13.1 K/mcL (4.3-11.1) H 08/09/19 02:08 RBC 5.12 M/mcL (3.82-4.97) H 08/08/19 10:55 MCV 82.6 fL (83.0-100.0) L 08/10/19 03:54 MCH 26.7 pg (28.0-33.3) L 08/10/19 03:54 RDW 15.3 % (11.5-14.5) H 08/10/19 03:54 MPV 8.8 fL (9.4-12.4) L 08/10/19 03:54 Neutrophils # 9.3 K/mcL (1.6-8.9) H 08/09/19 02:08 Potassium 3.1 mEq/L (3.5-5.1) L 08/11/19 05:49 Chloride 108 mEq/L (98-107) H 08/09/19 02:08 Carbon Dioxide 20 mEq/L (23-29) L 08/09/19 02:08 Creatinine 0.52 mg/dL (0.60-1.20) L 08/11/19 05:49 Glucose 138 mg/dL (70-105) H 08/11/19 05:49 POC Glucose 112 mg/dL (70-99) H 08/10/19 16:42 Hemoglobin A1c 6.2 % (-5.6) H 08/09/19 02:08 Creatine Kinase 262 Units/L (30-223) H 08/08/19 10:55 HDL Cholesterol 39 mg/dL (40-59) L 08/09/19 02:08 Ur Specific [place] > 1.030 (1.010-1.025) H 08/08/19 11:43 Urine Protein 100 mg/dL (Neg-Trace) H 08/08/19 11:43 Urine Ketones >=160 mg/dL (Negative) H 08/08/19 11:43 Urine Blood Moderate (Negative) H 08/08/19 11:43 Urine Bilirubin Small (Negative) H 08/08/19 11:43 Urine Microscopic RBC 5-15 per hpf (0-3) H 08/08/19 11:43 Ur Squamous Epith Cells Many per lpf (None-Few) H 08/08/19 11:43 Hyaline Casts Moderate per lpf (None-Few) H 08/08/19 11:43 Consult Discharge Plan - Plan Referrals: NONE,PCP [Primary Care Provider] -
[2019-08-12 04:28] LABS: BUN/Creatinine Ratio 18 (6-26); Blood Urea Nitrogen 9 mg/dL (8-23); Carbon Dioxide 27 mEq/L (23-29); Chloride 104 mEq/L (98-107); Glucose 119 mg/dL (70-105); Osmolality,Calculated 288 (280-300); Potassium 3.3 mEq/L (3.5-5.1); Sodium 139 mEq/L (136-145); eGFR For African Americans > 60 (> 60); eGFR For Non-African Americans > 60 (> 60)
[2019-08-12] MEDS: levETIRAcetam 250 MG TABLET PO SCH (05:20)
[2019-08-12 07:55] VITALS: BP 136/78
[2019-08-12] MEDS: amLODIPine 5 MG TABLET PO SCH (08:09)
[2019-08-12] MEDS: lamoTRIgine 100 MG TABLET PO SCH (08:10)
[2019-08-12] MEDS: Cholecalciferol (D-3) 1,000 UNIT (25MCG) TABLET PO SCH (08:10)
[2019-08-12] MEDS: Insulin LISPRO 300 UNITS/3 ML VIAL SQ SCH (08:58)
--- NOTE | 2019-08-12 09:04 | Discharge Summary ---
- NOTES TO OUTPATIENT PROVIDER Notes to Outpatient Provider: She was admitted to the hospital for right-sided stroke. Initial evaluation found lacunar infarct in left basal ganglia. Patient will be discharged to [facility] facility. PT and OT therapy. Aggressive control of this factor. Follow-up patient outpatient. 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 Garcia is a 68 year old female with past medical history of diabetes was presented to the hospital with complaint of right-sided weakness. On initial evaluation patient found lacunar infarct in left basal ganglia. Neurology was consulted. Due to vegal nerve stimulator MRI was not obtained. CTA of the neck was done which did not show any significant stenosis. Patient discharged to [facility] facility with physical therapy and therapy recommendation. She was started on Plavix. Patient has uncontrolled hypertension so patient was started on Coreg and Norvasc. Continue aggressive risk factor management. Follow-up with primary care provider within one week. Discharge discussed with: patient, nurse, social work, case management, medical cost consultant - Time Spent with Patient Total time spent providing and/or coordinating discharge services: 35 Time spent: Greater than 30 minutes - Discharge Medications Prescriptions: New Clopidogrel [Plavix] 75 mg PO DAILY tablet Carvedilol [Coreg] 6.25 mg PO BIDWM tablet amLODIPine [Norvasc] 5 mg PO DAILY tablet Continued Cholecalciferol (D-3) [Vitamin D] 1,000 unit PO DAILY metFORMIN [Glucophage] 500 mg PO BIDWM lamoTRIgine [Lamictal] 100 mg PO BID Escitalopram [Lexapro] 20 mg PO DAILY Pantoprazole Sodium [Protonix] 40 mg PO DAILY Oxybutynin [Ditropan] 2.5 mg PO QAM Oxybutynin [Ditropan] 5 mg PO QPM Levothyroxine [Synthroid] 88 mcg PO DAILY LevETIRAcetam [Keppra] 1,500 mg PO Q12H Ferrous Sulfate 325 mg PO BID Atorvastatin Calcium [Lipitor] 20 mg PO DAILY Home Medications: Atorvastatin Calcium [Lipitor] 20 mg PO DAILY 07/30/16 [History] Cholecalciferol (D-3) [Vitamin D] 1,000 unit PO DAILY 07/30/16 [History] Escitalopram [Lexapro] 20 mg PO DAILY 07/30/16 [History] Ferrous Sulfate 325 mg PO BID 07/30/16 [History] LevETIRAcetam [Keppra] 1,500 mg PO Q12H 07/30/16 [History] Levothyroxine [Synthroid] 88 mcg PO DAILY 07/30/16 [History] Oxybutynin [Ditropan] 2.5 mg PO QAM 07/30/16 [History] Oxybutynin [Ditropan] 5 mg PO QPM 07/30/16 [History] Pantoprazole Sodium [Protonix] 40 mg PO DAILY 07/30/16 [History] lamoTRIgine [Lamictal] 100 mg PO BID 07/30/16 [History] metFORMIN [Glucophage] 500 mg PO BIDWM 07/30/16 [History] Carvedilol [Coreg] 6.25 mg PO BIDWM tablet 08/12/19 [Rx] Clopidogrel [Plavix] 75 mg PO DAILY tablet 08/12/19 [Rx] amLODIPine [Norvasc] 5 mg PO DAILY tablet 08/12/19 [Rx] Allergies/Adverse Reactions: Allergy/AdvReac Type Severity Reaction Status Date / Time aspirin Allergy See Verified 08/08/19 11:06 Comments codeine Allergy See Verified 08/08/19 11:06 Comments indomethacin [From Indocin] Allergy See Verified 08/08/19 11:06 Comments meclizine [From Antivert] Allergy See Verified 08/08/19 11:06 Comments Penicillins [PCN] Allergy See Verified 08/08/19 11:06 Comments phenytoin [From Dilantin] Allergy See Verified 08/08/19 11:06 Comments Sulfa (Sulfonamide Allergy See Verified 08/08/19 11:06 Antibiotics) Comments Date of admission: 08/09/19 14:00 Primary care physician: PCP NONE Consults: 08/08/19 12:17 Consult to Orthopedic Surgery [CONS] Stat Consulting Provider: Josue Abdul Reason for Consult: R hip pain, s/p fall Time Notified: 12:17 Call Completed: Yes 08/08/19 14:18 Consult to Neurology [CONS] Stat Consulting Provider: Neu[facility] Reason for Consult: right sided weakness of face, arm, leg. LKW Time Notified: 14:18 Call Completed: Yes 08/08/19 16:06 Consult to Speech Therapy [CONS] Routine Comment: Evaluate, develop and implement POC Reason for Consult: CVA Call Completed: No 08/09/19 12:58 Consult to Occupational Therapy [CONS] Routine Comment: Evaluate, develop and implement POC Reason for Consult: ECF placement. Stroke. Non weight bearing right side. Does patient have active BEDREST order?: No Is patient medically & hemodynamically stable?: Yes Patient assessed for mobility or mobilized this visit?: No Consult to Physical Therapy [CONS] Routine Comment: Evaluate, develop and implement POC Reason for Consult: ECF placement. Stroke. Non weight bearing to right side Does patient have active BEDREST order?: No Is patient medically & hemodynamically stable?: Yes Patient assessed for mobility or mobilized this visit?: Yes Discharging clinician: Bravo Mcclendon - Constitutional Vitals: Temp Pulse Resp BP Pulse Ox 98.5 F 66 16 136/78 94 08/12/19 07:54 08/12/19 07:54 08/12/19 07:54 08/12/19 07:54 08/12/19 07:54 General appearance: Present: A&O X 3 Exam: General: Patient is alert, oriented 3. No distress Respiratory: No respiratory distress, rhonchi, or wheezes noted. Cardiovascular: Regular rate and regular rhythm, No murmurs, rubs, or gallops. GI: Soft, nondistended, normal bowel sounds. Extremities: Right hip red discoloration consistent with hematoma. No external or internal rotation of the right lower extremity. Pulses are intact in the right and the left dorsalis pedis Neurological: Slurred speech, right facial droop. Right proptosis, Right sided Upper and Lower extermity weakness, sensation sensation has been improving.. Babinski sign is up going and the right lower extremity. Psychiatric: normal affect, normal mood. Skin: Dry, intact, warm. Normal color. No rashes. - Patient Status Disposition: Transfer SNF Condition: Fair Overall status at discharge: patient is not back to baseline - Discharge Instructions Follow Up With: NONE,PCP [Primary Care Provider] - - Diet and Activity Activity: as per physical therapy, increase activity as tolerated Diet: diabetic diet, low salt diet - VTE Documentation of Mechanical Device: Intermittent pneumatic compression device
--- NOTE | 2019-08-12 09:08 | Physician Discharge Referral ---
ExtendedCare Referral Info Transfer To: SNF Provider in Charge after Transfer: PCP - Diagnosis (1) Cerebrovascular accident Priority: Primary Status: Acute (2) Hip hematoma, right Priority: Secondary Status: Acute (3) Seizure disorder Priority: Secondary Status: Acute (4) T2DM (type 2 diabetes mellitus) Priority: Secondary Status: Acute (5) Hypothyroidism Priority: Secondary Status: Acute - Transfer Medications Home Medications: Atorvastatin Calcium [Lipitor] 20 mg PO DAILY 07/30/16 [History] Cholecalciferol (D-3) [Vitamin D] 1,000 unit PO DAILY 07/30/16 [History] Escitalopram [Lexapro] 20 mg PO DAILY 07/30/16 [History] Ferrous Sulfate 325 mg PO BID 07/30/16 [History] LevETIRAcetam [Keppra] 1,500 mg PO Q12H 07/30/16 [History] Levothyroxine [Synthroid] 88 mcg PO DAILY 07/30/16 [History] Oxybutynin [Ditropan] 2.5 mg PO QAM 07/30/16 [History] Oxybutynin [Ditropan] 5 mg PO QPM 07/30/16 [History] Pantoprazole Sodium [Protonix] 40 mg PO DAILY 07/30/16 [History] lamoTRIgine [Lamictal] 100 mg PO BID 07/30/16 [History] metFORMIN [Glucophage] 500 mg PO BIDWM 07/30/16 [History] Carvedilol [Coreg] 6.25 mg PO BIDWM tablet 08/12/19 [Rx] Clopidogrel [Plavix] 75 mg PO DAILY tablet 08/12/19 [Rx] amLODIPine [Norvasc] 5 mg PO DAILY tablet 08/12/19 [Rx] Allergies/Adverse Reactions: Allergy/AdvReac Type Severity Reaction Status Date / Time aspirin Allergy See Verified 08/08/19 11:06 Comments codeine Allergy See Verified 08/08/19 11:06 Comments indomethacin [From Indocin] Allergy See Verified 08/08/19 11:06 Comments meclizine [From Antivert] Allergy See Verified 08/08/19 11:06 Comments Penicillins [PCN] Allergy See Verified 08/08/19 11:06 Comments phenytoin [From Dilantin] Allergy See Verified 08/08/19 11:06 Comments Sulfa (Sulfonamide Allergy See Verified 08/08/19 11:06 Antibiotics) Comments - Respiratory Orders Smoking Cessation: Smoking cessation has been advised. For more information, call the [place] Tobacco Quit Line at 5-853-BTZQ-NOW. - Ancillary Orders May use pressure relief devices daily prn - Advance Directives Code Status: DNR-Arrest/Don't Intubate - Rehabiliation Orders Rehab Potential: Fair Rehab Orders: ROM Exercises, Evaluation for Physical Therapy, Evaluation for Occupational Therapy, Evaluation for Speech Therapy - Treatments Skin tear care topically daily PRN per policy - Diet Orders Mechanical Soft, No Added Salt (MIRYAM), Cardiac House Supplement per Dietary: Pt need assitance with feeding soft diet. Advance diet as tolerated. CERTIFICATION: I certify that the transfer of the above named patient to an Extended Care Facility is necessary for the continuing treatment of the diagnosis listed. The above information is true and accurate reflection of patient's current condition. Confidential - Redisclosure prohibited without a patient's written consent.
== END 2019-08-12 11:37 | DRG 65 ==
LOC: 3BNU 10:50 → EMEROOARM 10:50 → SUATTDRO 14:55 → 3BNU 16:09
PROVIDERS: ADMIT Student in an Organized Health Care Education/Training Program; ATTEND Family Medicine

== ENCOUNTER 2019-12-08 12:23 | Inpatient (IN) ==
[2019-12-08 13:04] LABS: Basophils # 0.1 K/mcL (0.0-0.2); Basophils % 0.5 %; Eosinophils # 0.2 K/mcL (0.0-0.6); Eosinophils % 2.5 %; Hematocrit 36.8 % (35.3-44.9); Hemoglobin 11.5 g/dL (11.5-15.4); Immature Granulocytes % 0.6 % (0-4); Lymphocytes # 1.9 K/mcL (0.6-4.6); Lymphocytes % 19.7 %; Mean Corpuscular HGB Conc 31.3 g/dL (31.6-35.5); Mean Corpuscular Hemoglobin 28.3 pg (28.0-33.3); Mean Corpuscular Volume 90.4 fL (83.0-100.0); Mean Platelet Volume 8.3 fL (9.4-12.4); Monocytes # 0.7 K/mcL (0.0-1.3); Monocytes % 6.7 %; Neutrophils # 6.8 K/mcL (1.6-8.9); Platelet Count 342 K/mcL (140-400); Red Blood Count 4.07 M/mcL (3.82-4.97); White Blood Count 9.7 K/mcL (4.3-11.1)
[2019-12-08 13:11] LABS: INR 0.9; Prothrombin Time 10.3 Seconds (9.4-12.1)
[2019-12-08 13:27] LABS: Alanine Aminotransferase 28 Units/L (7-52); Albumin 3.9 g/dL (3.5-5.7); Albumin/Globulin Ratio 1.4 (1.1-2.2); Alkaline Phosphatase 78 Units/L (34-104); Aspartate Amino Transferase 17 Units/L (13-39); BUN/Creatinine Ratio 20 (6-26); Bilirubin,Total 0.4 mg/dL (0.3-1.0); Blood Urea Nitrogen 14 mg/dL (8-23); Calcium 9.3 mg/dL (8.6-10.3); Carbon Dioxide 27 mEq/L (23-29); Chloride 106 mEq/L (98-107); Globulin 2.7 g/dL (2.4-3.5); Glucose 113 mg/dL (70-105); Magnesium 1.9 mg/dL (1.6-2.6); Osmolality,Calculated 295 (280-300); Potassium 4.4 mEq/L (3.5-5.1); Sodium 142 mEq/L (136-145); Total Protein 6.6 g/dL (6.4-8.9); Troponin I < 0.03 ng/mL (< 0.04); eGFR For African Americans > 60 (> 60); eGFR For Non-African Americans > 60 (> 60)
[2019-12-08 13:40] LABS: Thyroid Stimulating Hormone 5.649 mcIU/mL (0.340-5.600)
[2019-12-08 16:04] LABS: Bacteria,Urine Many per hpf (None-Few); Bilirubin,Urine Negative (Negative); Blood,Urine Trace (Negative); Color,Urine Yellow (Yellow); Glucose,Urine (UA) Normal (Normal); Hyaline Casts,Urine None Seen per lpf (None-Few); Ketones,Urine Negative (Negative); Leukocyte Esterase,Urine Large (Negative); Nitrite,Urine Positive (Negative); Protein,Urine 30 mg/dL (Neg-Trace); Specific Gravity,Urine 1.017 (1.010-1.025); Squamous Epithelial Cell,Urine Moderate per lpf (None-Few); Urobilinogen,Urine Normal (Normal); WBC,Urine TNTC per hpf (0-3)
[2019-12-08 16:05] LABS: Clarity,Urine Cloudy (Clear)
[2019-12-08] MEDS ORDERED: cefTRIAXone 1,000 MG in Water for inj. (sterile) 10 ML IVP ONE (16:12)
[2019-12-08] MEDS ORDERED: *HR* Promethazine 25 MG/ML VIAL IVP PRN (16:46)
[2019-12-08] MEDS ORDERED: Naloxone 0.4 MG/ML INJ IVP PRN (16:46)
[2019-12-08] MEDS ORDERED: MOM Conc 10 ML UD.LIQ PO PRN (16:46)
[2019-12-08] MEDS ORDERED: Ondansetron 4 MG/2 ML VIAL IVP PRN (16:46)
[2019-12-08] MEDS ORDERED: Mag Hydrox/Al Hydrox/Simeth 30 ML UDC PO PRN (16:46)
[2019-12-08] MEDS ORDERED: Acetaminophen 325 MG TABLET PO PRN (16:46)
[2019-12-08] MEDS ORDERED: Dextrose Gel 15 GM/37.5 ML TUBE PO PRN ×2 (16:48)
[2019-12-08] MEDS ORDERED: D5% in Water 1,000 ML IVC PRN (16:48)
[2019-12-08] MEDS ORDERED: *HR* Dextrose 50 % in Water (Syg) 50 ML SYRINGE IVP PRN (16:48)
[2019-12-08] MEDS: *HR* Heparin 5,000 UNIT/ML VIAL SQ SCH (19:48)
[2019-12-08] MEDS: Insulin LISPRO 300 UNITS/3 ML VIAL SQ SCH (21:10)
[2019-12-09] MEDS: *HR* Heparin 5,000 UNIT/ML VIAL SQ SCH ×2 (06:11→16:58)
[2019-12-09 06:40] LABS: Basophils # 0.1 K/mcL (0.0-0.2); Basophils % 0.7 %; Eosinophils # 0.2 K/mcL (0.0-0.6); Eosinophils % 3.1 %; Hemoglobin 12.3 g/dL (11.5-15.4); Immature Granulocytes % 0.4 % (0-4); Lymphocytes # 2.2 K/mcL (0.6-4.6); Lymphocytes % 28.1 %; Mean Corpuscular HGB Conc 32.4 g/dL (31.6-35.5); Mean Corpuscular Hemoglobin 27.9 pg (28.0-33.3); Mean Corpuscular Volume 86.2 fL (83.0-100.0); Mean Platelet Volume 8.4 fL (9.4-12.4); Monocytes # 0.5 K/mcL (0.0-1.3); Monocytes % 6.6 %; Neutrophils # 4.7 K/mcL (1.6-8.9); Platelet Count 374 K/mcL (140-400); Red Blood Count 4.41 M/mcL (3.82-4.97); Segmented Neutrophils % 61.1 %; White Blood Count 7.7 K/mcL (4.3-11.1)
[2019-12-09 06:52] LABS: BUN/Creatinine Ratio 18 (6-26); Blood Urea Nitrogen 12 mg/dL (8-23); Calcium 9.9 mg/dL (8.6-10.3); Carbon Dioxide 28 mEq/L (23-29); Chloride 100 mEq/L (98-107); Glucose 96 mg/dL (70-105); Osmolality,Calculated 292 (280-300); Potassium 4.2 mEq/L (3.5-5.1); Sodium 141 mEq/L (136-145); eGFR For African Americans > 60 (> 60); eGFR For Non-African Americans > 60 (> 60)
[2019-12-09] MEDS: Insulin LISPRO 300 UNITS/3 ML VIAL SQ SCH ×4 (08:02→21:21)
[2019-12-09] MEDS ORDERED: *HR* LORazepam 2 MG/ML VIAL IVP PRN (11:26)
[2019-12-09] MEDS: levETIRAcetam 250 MG TABLET PO SCH (11:37)
[2019-12-09] MEDS: carvediloL 6.25 MG TABLET PO SCH (16:58)
[2019-12-09] MEDS ORDERED: cefTRIAXone 2,000 MG in Water for inj. (sterile) 20 ML IVPB SCH (17:00)
[2019-12-09] MEDS: lamoTRIgine 100 MG TABLET PO SCH (21:21)
[2019-12-10] MEDS: levETIRAcetam 250 MG TABLET PO SCH ×3 (00:07→22:32)
[2019-12-10] MEDS: *HR* Heparin 5,000 UNIT/ML VIAL SQ SCH ×2 (05:27→16:43)
[2019-12-10] MEDS: Insulin LISPRO 300 UNITS/3 ML VIAL SQ SCH ×4 (07:53→20:51)
[2019-12-10] MEDS: carvediloL 6.25 MG TABLET PO SCH ×3 (08:04→17:49)
[2019-12-10] MEDS: Cholecalciferol (D-3) 1,000 UNIT (25MCG) TABLET PO SCH (08:04)
[2019-12-10] MEDS: amLODIPine 5 MG TABLET PO SCH (08:04)
[2019-12-10] MEDS: lamoTRIgine 100 MG TABLET PO SCH ×2 (08:04→22:32)
[2019-12-10] MEDS: cephALEXin 250 MG CAPSULE PO SCH ×2 (16:35→22:32)
[2019-12-11] MEDS: *HR* Heparin 5,000 UNIT/ML VIAL SQ SCH (06:41)
[2019-12-11 08:47] VITALS: BP 121/64
[2019-12-11] MEDS: amLODIPine 5 MG TABLET PO SCH (09:03)
[2019-12-11] MEDS: cephALEXin 250 MG CAPSULE PO SCH (09:03)
[2019-12-11] MEDS: carvediloL 6.25 MG TABLET PO SCH (09:03)
[2019-12-11] MEDS: lamoTRIgine 100 MG TABLET PO SCH (09:03)
[2019-12-11] MEDS: Cholecalciferol (D-3) 1,000 UNIT (25MCG) TABLET PO SCH (09:03)
[2019-12-11] MEDS: Insulin LISPRO 300 UNITS/3 ML VIAL SQ SCH ×2 (09:04→11:42)
[2019-12-11] MEDS: levETIRAcetam 250 MG TABLET PO SCH (11:39)
== END 2019-12-11 13:48 | DRG 689 ==
LOC: 3BNU 12:23 → EMEROOARM 12:23 → 3BNU 17:41
PROVIDERS: ADMIT Internal Medicine; ATTEND Internal Medicine